=== PATIENT | female | born 1955 | race African-American/Black ===

== ENCOUNTER 2021-02-04 13:32 | Outpatient (CLI) | payer OTHER, SELFPAY | END 2021-02-04 13:33 | disposition home or self-care (01) | LOC: ANHAUDIO 13:36 | PROVIDERS: PCP Nurse Practitioner Family; Visit Provider Nurse Practitioner Family | DX: Z01.10 Encounter for examination of ears and hearing without abnormal findings (principal) | CPT/HCPCS: 92557; 92567 ==

== ENCOUNTER 2021-04-28 11:00 | Outpatient (RCR) | payer OTHER, SELFPAY | END 2021-04-28 23:59 | disposition home or self-care (01) | LOC: ANHAUDIO 11:00 | PROVIDERS: PCP Nurse Practitioner Family; Visit Provider Nurse Practitioner Family | DX: Z46.1 Encounter for fitting and adjustment of hearing aid (principal) | CPT/HCPCS: 99199; V5160; V5261; V5264 ==

== ENCOUNTER 2021-07-02 09:09 | Inpatient (IN) | payer OTHER, SELFPAY ==
[2021-07-02] VITALS (25 sets, daily range): BP systolic 118–152; BP diastolic 57–78; PULSE 77–92; RESP 16–23; TEMP 36.6–37.1; O2SAT 91–100
--- NOTE | ~2021-07-02 | CT_ITS ---
EXAMINATION: CT brain wo con DATE: 07/02/2021 10:05 INDICATION: Left-sided head injury. TECHNIQUE: Computed tomography (CT) of the head was performed without intravenous contrast. The mA wa s adjusted according to patient size. Iterative reconstruction technique was employed. The dose-lengt h product was 605.33 mGy-cm. 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 There are scattered areas of low attenuati on in the cerebral white matter. There is no intracranial hemorrhage, acute infarction, or abnormal i ntracranial mass lesion. The ventricles are normal in size. Cavum septum pellucidum and vergae are no lucas. The orbits are normal. There is complete opacification of sphenoid sinus with thickening and scl erosis of the sinus de leon, consistent with chronic sinusitis. There is mild mucosal thickening in oth er paranasal sinuses. The mastoid air cells are normal. IMPRESSION: 1. Small old infarct in left cerebellum. 2. Mild nonspecific cerebral white matter disease, which likely represents chronic small vessel ische uzair disease. 3. Chronic sinusitis. Reviewed, dictated and finalized at location A. IMPRESSION: 1. Small old infarct in left cerebellum. 2. 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 3. Chronic sinusitis.
--- NOTE | ~2021-07-02 | CT_ITS ---
EXAMINATION: CT cervical spine wo [facility] EXAM DATE: 07/02/2021 10:05 INDICATION: Fall, left hip injury. TECHNIQUE: Spiral CT of the cervical spine was performed without contrast. Axial images were reviewe d. Coronal and sagittal reformatted images cervical spine were also reviewed. The dose-length produc t (DLP) for this examination was 515.85 mGy-cm. The exposure was tailored according to patient size (auto mA exposure control), and iterative reconstruction (ASIR) was used as additional dose reduction technique. There is no prior study for comparison. FINDINGS: There is moderate reversal of the normal cervical lordosis which may be positional or spasm . There is no evidence of acute cervical fracture. The odontoid process is intact. Pre-dens space i s normal. Prevertebral soft tissue is normal. There are no soft tissue abnormalities identified. T here is no disc space widening or traumatic vertebral body subluxation suspected. There are moderate-sized lower cervical endplate osteophytes anteriorly. There is mild to moderate di ffuse cervical disc disease. There is severe left facet arthropathy at C3-4, moderate at the 2 contig uous levels. Less facet arthropathy at other levels. There is severe left neural foraminal stenosis a t C3-4, much less stenosis at other levels. There is opacified sphenoid sinus with wall thickening in dicating this is chronic. A detailed level by level evaluation of spondylosis can be added as addend um if requested. IMPRESSION: 1. No acute cervical fracture. 2. Reversal cervical lordosis. 3. Cervical spondylosis with severe left C3-4 neural foraminal stenosis. Reviewed, dictated and finalized at location B.
--- NOTE | ~2021-07-02 | XR_ITS ---
XR surgery orthopedic 07/03/2021 15:07 Indication: Intraoperative fixation of left hip fracture Procedure: 3 fluoroscopic views left hip. 132 seconds of fluoroscopy. Comparison: 07/02/2021 Findings: Interval placement of 3 lag screws transfixing the left femoral neck. Subcapital fracture n ot well visualized. The left femur is in anatomic alignment. Impression: 1: Anatomic alignment of left femoral neck status post internal fixation with 3 lag screws. Reviewed, dictated and finalized at location A. Impression: 1: Anatomic alignment of left femoral neck status post internal fixation with 3 lag screws.
--- NOTE | ~2021-07-02 | XR_ITS ---
EXAMINATION: XR chest 1V INDICATION: Hypertension, history of diabetes TECHNIQUE: AP view of the chest is obtained. COMPARISON: None available FINDINGS: The lungs are free of acute opacities. There is no pleural effusion or pneumothorax. The ca rdiomediastinal silhouette is normal. There is moderate osteoarthritis of the shoulders. Healed right -sided rib fractures are noted. IMPRESSION: 1. No acute cardiopulmonary abnormality. Reviewed, dictated and finalized at location A.
--- NOTE | ~2021-07-02 | XR_ITS ---
EXAMINATION: XR hip LT min 2V DATE: 07/02/2021 10:20 INDICATION: Left hip pain. Fall. TECHNIQUE: 2 views of left hip were obtained. COMPARISON: None. FINDINGS: There is a subcapital fracture deformity of left femoral neck with mild impaction. There is mild left hip osteoarthritis. IMPRESSION: 1. Age-indeterminate subcapital fracture deformity of left femoral neck. 2. Mild left hip osteoarthritis. Reviewed, dictated and finalized at location A.
[2021-07-02 09:29] LABS: Basophils Percent Auto 0.2 % (0.2-1.2); Hematocrit 29.9 % (37.0-47.0); Hemoglobin 9.7 g/dL (12.0-15.0); Immature Granulocyte Absolute 0.02 K/mm3 (0.00-0.031); Immature Granulocyte Percent A 0.2 % (0-0.5); Lymphocytes Absolute Auto 0.84 K/mm3 (0.9-3.2); Lymphocytes Percent Auto 7.3 % (18.3-44.2); Mean Corpuscular HGB Conc 32.4 g/dl (32-36); Mean Corpuscular Hemoglobin 29.4 pg (26-34); Mean Corpuscular Volume 90.6 fl (80-100); Mean Platelet Volume 8.8 fl (7.4-10.4); Monocytes Absolute Auto 0.3 K/mm3 (0.1-0.6); Monocytes Percent Auto 2.2 % (2.6-8.5); Neutrophils Absolute Auto 10.4 K/mm3 (1.3-6.7); Neutrophils Percent Auto 90.1 % (45.5-73.1); Platelet Count Result 295 k/mm3 (150-375); White Blood Count 11.6 K/mm3 (4.5-10.0)
[2021-07-02 09:42] LABS: Anion Gap 10 mmol/L (8-16); Blood Urea Nitrogen 27 mg/dL (7-17); Calcium 9.4 mg/dL (8.4-10.2); Carbon Dioxide 26 mmol/L (22-30); Chloride 101 mmol/L (98-107); Estimated Glomerular Filt Rate 50; Glucose 294 mg/dL (65-110); Potassium 4.4 mmol/L (3.4-5.0); Sodium 137 mmol/L (137-145)
[2021-07-02] MEDS: ONDANSETRON INJ 4 MG/2 ML VIAL IV PUSH (10:43)
[2021-07-02] MEDS: MORPHINE SULFATE (*CRX) 2 MG/ML INJ 1 MG IV PUSH (10:43)
[2021-07-02 11:22] LABS: Add Urine Microscopic? YES; Appearance Urine Clear (Clear); Bilirubin Urine Negative (Negative); Blood Urine Negative (Negative); Color Urine Straw (Yellow); Glucose Urine UA 1+ mg/dL (Negative); Ketones Urine Negative (Negative); Leukocyte Esterase Ur Negative LEU/UL (Negative); Nitrate Urine Negative (Negative); Protein Urine 2+ mg/dL (Negative); RBC Urine 0-2 /hpf (0-2); Specific Grav Ur 1.012 (1.001-1.035); Squamous Epithelial Cell Urine Rare /hpf (Few); Urobilinogen Urine Negative mg/dL (<2.0); WBC Urine 0-3 /hpf
[2021-07-02] MEDS: MORPHINE SULFATE (*CRX) 2 MG/ML INJ IV PUSH (11:35)
[2021-07-02] MEDS: SODIUM CHLORIDE 0.9% IV 1,000 ML 999 ML IV CONT (11:35)
--- NOTE | 2021-07-02 12:07 | ED.FALL ---
HPI - Fall General Chief Complaint: Fall Stated Complaint: FALL HIP Time Seen by Provider: 07/02/21 09:37 Source: patient and EMS Mode of arrival: EMS Limitations: no limitations History of Present Illness HPI Narrative: Patient is a 66-year-old female with intellectual delay, hypertension, diabetes type 2 presenting with chief complaint of left hip pain after falling out of her bed while residing in [facility] this morning around 4 AM. Patient states that she was able to get herself up and sit on the side of her bed but she noted pain to the area. Patient reports that she hit her head but denies consciousness, change in vision or hearing or any drainage or bleeding from her orifices. Patient reports pain when she tries to ambulate or put weight on her left leg. She denies any abdominal pain, back or neck pain or any other symptoms. Patient states that she was given a Tylenol and that helped with her head soreness but she still has some left hip soreness that is mild. EMS reports that when they picked the patient that her blood sugar was 430 and she administered her insulin prior to coming to the ER. Related Data Allergies Allergy/AdvReac Type Severity Reaction Status Date / Time No Known Allergies Allergy Verified 07/02/21 10:40 Review of Systems Review of Systems: CONSTITUTIONAL: Denies fever, chills, or sweats. EYES: Denies visual changes, redness, or discharge. ENT: Denies rhinorrhea, congestion, sore throat, or otalgia. CARDIOVASCULAR: Denies chest pain, palpitations, or edema. RESPIRATORY: Denies cough or dyspnea. GASTROINTESTINAL: Denies abdominal pain, nausea, vomiting, or diarrhea. GENITOURINARY: Denies dysuria or hematuria. SKIN: Denies rash or itching. MUSCULOSKELETAL: Reports left hip pain denies back pain, joint pain, or myalgia. NEUROLOGIC: Denies headache, numbness, dizziness, or weakness. PSYCHIATRIC: Denies anxiety or depression. [facility], LAT[facility] Past Medical History Medical History (Updated 07/02/21 @ 12:13 by Jo Aguilar PA-C) Diabetes type 2, uncontrolled Glaucoma Intellectual delay Exam Narrative: GENERAL: Well-appearing, well-nourished, and in no acute distress. HEAD: Normocephalic, atraumatic. No hematomas or signs of fracture. EYES: PERRLA and EOMI. ENT: Nares clear, no rhinorrhea or epistaxis. Mucous membranes moist. Oropharynx without tonsillar hypertrophy exudate or other lesions. Bilateral TMs pearly goetz nonbulging NECK: Supple. No adenopathy or masses. Range of motion intact without tenderness. CHEST: Clear to auscultation. No respiratory distress. No wheezes rales or rhonchi HEART: Regular rate and rhythm. No murmur heard. Normal peripheral pulses. ABDOMEN: Soft, nontender, nondistended, normal active bowel sounds. EXTREMITIES: Pain elicited with palpation of left hip in the groin region.patient refuses to move the left leg due to pain. No edema. SKIN: Warm, dry, no rash. NEURO: No focal deficits. Alert and oriented x3. PSYCH: Normal mood and affect. Course Vital Signs Vital signs: Vital Signs Temperature 98.8 F 07/02/21 09:12 Pulse Rate 91 07/02/21 09:12 Respiratory Rate 20 07/02/21 09:12 Blood Pressure 136/67 07/02/21 09:12 Pulse Oximetry 97 07/02/21 09:12 Temperature 98.8 F 07/02/21 09:12 Pulse Rate 82 07/02/21 12:04 Respiratory Rate 16 07/02/21 12:04 Blood Pressure 138/68 07/02/21 12:04 Pulse Oximetry 100 07/02/21 11:45 MDM - Fall MDM Narrative Medical decision making narrative: It is noted that patient has a subcapital fracture. Patient denies prior fracture and due to that being the area of her pain I suspect it is actually an acute fracture. Consult with Dr. Ruvalcaba who agrees to consult on patient a point admission to the hospitalist. Consult Dr. Turner with patient for admission. Patient creatinine and BUN are elevated at 1.3 and 27. Her urine shows protein and glucose but not ketones. Patient's blood sugar has
--- NOTE | 2021-07-02 12:51 | ADMGEN ---
This patient, Angie Merino, was admitted to Virtual Bed 3rd Floor-2. Patient/family oriented to hospital policies and general routines including ID bracelet, bed and alarms, visiting hours, pain management, procedures, bathroom and other care routines, personal items, smoking policy, room service/diet, and visiting hours. Information on how to activate the Rapid Response Team has been discussed. Admission process reviewed with pt while in ED. Pt has some difficulty answering questions at time, due to intellectual delay.
--- NOTE | 2021-07-02 13:00 | PM.IMHP ---
H&P: HPI History of Present Illness Date/Time: 07/02/21 13:00 Chief Complaint: Left hip pain after fall. Narrative: This is a very pleasant 66-year-old female with insulin-dependent diabetes and hypertension who presented to the emergency department earlier today via EMS from [facility] for evaluation of left hip pain after a fall. The patient tells me that she was sitting at the side of the bed drinking some juice when she accidentally slid out of the bed and fell hard onto her buttock with immediate pain in her left hip. She was able to pull herself back up into bed but she has continued to have pain and due to inability to bear weight today she was brought in for evaluation. X-ray of the left hip showed a subcapital fracture deformity of the left femoral neck and she is being admitted in this setting. She denies head trauma and loss of consciousness in the fall. She sustained no other injuries. At this time her pain is well controlled with no paresthesias, skin color, or temperature changes distal to the fracture. Review of Systems Review of Systems: Twelve systems were reviewed. No fever, chills, or sweats. No lightheadedness or dizziness. No syncope or near syncope. She denies chest pain or shortness of breath. No history of coronary artery disease. No cough. No sick contacts. She has some nausea early on after the fall but no vomiting. No diarrhea or dysuria. Except as documented, all other systems were reviewed and are negative. [facility] Past Medical History Medical History (Updated 07/02/21 @ 19:40 by Maite Soto PA-C) Glaucoma Hypertension Insulin dependent type 2 diabetes mellitus Intellectual delay Surgical History Surgical History (Updated 07/02/21 @ 19:36 by Maite Soto PA-C) No history of previous surgery Family History Family History (Updated 07/02/21 @ 19:37 by Maite Soto PA-C) Other Diabetes mellitus Hypertension Social History Social History (Updated 07/02/21 @ 19:45 by Maite Soto PA-C) Social History: Surrogate decision maker: Cathy Rae social services counselor. Code status: Full code. Smoking status: Never smoker Alcohol intake: never Substance use: never Substance use type: does not use Additional living arrangements comments: Resident of [facility]. Additional occupation/education comments: Disabled. Meds Home Medications and Allergies Home Medications Medication Instructions Recorded Confirmed Type amlodipine 5 mg PO DAILY 07/02/21 07/02/21 History atorvastatin 80 mg PO DAILY 07/02/21 07/02/21 History chlorthalidone 25 mg PO DAILY 07/02/21 07/02/21 History ergocalciferol (vitamin D2) 1,250 mcg WEEKLY 07/02/21 07/02/21 History ferrous sulfate 325 mg PO TID 07/02/21 07/02/21 History fluoxetine 40 mg PO DAILY 07/02/21 07/02/21 History gabapentin 300 mg PO QPM 07/02/21 07/02/21 History glipizide 15 mg PO BID 07/02/21 07/02/21 History insulin glargine [Lantus U-100 10 unit SUBCUT HS 07/02/21 07/02/21 History Insulin] insulin lispro 2 unit SUBCUT TIDWM 07/02/21 07/02/21 History latanoprost 1 drp EACH EYE QPM 07/02/21 07/02/21 History lisinopril 40 mg PO DAILY 07/02/21 07/02/21 History omeprazole 20 mg PO DAILY 07/02/21 07/02/21 History Allergies Allergy/AdvReac Type Severity Reaction Status Date / Time No Known Allergies Allergy Verified 07/02/21 13:06 Vital Signs Vital Signs - 24 hr 07/02/21 09:12 07/02/21 09:24 07/02/21 09:30 Temperature 98.8 F Pulse Rate 91 82 77 Respiratory Rate 20 19 16 Blood Pressure 136/67 132/69 Pulse Oximetry 97 95 96 07/02/21 09:31 07/02/21 09:45 07/02/21 10:19 Temperature Pulse Rate 81 78 85 Respiratory Rate 19 17 19 Blood Pressure Pulse Oximetry 96 100 98 07/02/21 10:30 07/02/21 10:31 07/02/21 11:08 Temperature Pulse Rate 88 92 82 Respiratory Rate 22 H 16 23 H Blood Pressure 152/78 H Pulse Oximetry 100 100 96 07/02/21 1
--- NOTE | 2021-07-02 15:05 | ADMGEN ---
This patient, Angie Merino, was admitted to Virtual Bed 3rd Floor-2. Patient/family oriented to hospital policies and general routines including ID bracelet, bed and alarms, visiting hours, pain management, procedures, bathroom and other care routines, personal items, smoking policy, room service/diet, and visiting hours. Information on how to activate the Rapid Response Team has been discussed. Patient/Family are encouraged to report perceived risks to care and to ask questions if they do not understand what they are told or what they should do.
[2021-07-02] MEDS: MORPHINE SULFATE (*CRX) 4 MG/ML INJ 3 MG IV PUSH ×2 (15:40→23:17)
[2021-07-02 16:51] LABS: Glucose Point of Care 207 mg/dl (65-105)
--- NOTE | 2021-07-02 17:54 | PM.CNOR ---
Assessment and Plan Assessment and plan (1) Subcapital fracture of left hip: Qualifiers: Encounter type: initial encounter Fracture type: closed Qualified Code(s): S72.012A - Unspecified intracapsular fracture of left femur, initial encounter for closed fracture Code(s): S72.012A - Unspecified intracapsular fracture of left femur, initial encounter for closed fracture Status: Acute Assessment and Plan: Non displaced fracture has a high risk of displacement. Recommend percutaneous screw fixation. We discussed the risks, benefits, and alternatives to surgery. Proceed with Percutaneous pinning of left hip tomorrow. Synthes 7.3 cannulated screws. Plan 4 weeks partial weight bearing with a walker, then weight bearing as tolerated. History of Present Illness HPI Consult date: 07/02/21 Chief complaint: Left Subcapital Femur Fracture Narrative: Patient complains of acute hip pain. Fell from her bed. Admitted through the emergency room for definitive management. No previous hip pain. Comfortable at rest. No numbness, tingling, or other associated symptoms. Lives at a care center. Shows fair insight. Review of Systems Review of Systems: Denies loss of consciousness. All systems reviewed & are unremarkable except as noted in HPI and below PMFSH Past Medical History Medical History Diabetes type 2, uncontrolled Glaucoma Intellectual delay Social History Social History Smoking status: Never smoker Alcohol intake: never Substance use: never Substance use type: does not use Spiritual care concerns: No Meds Home Medications and Allergies Home Medications Medication Instructions Recorded Confirmed Type amlodipine 5 mg PO DAILY 07/02/21 07/02/21 History atorvastatin 80 mg PO DAILY 07/02/21 07/02/21 History chlorthalidone 25 mg PO DAILY 07/02/21 07/02/21 History ergocalciferol (vitamin D2) 1,250 mcg WEEKLY 07/02/21 07/02/21 History ferrous sulfate 325 mg PO TID 07/02/21 07/02/21 History fluoxetine 40 mg PO DAILY 07/02/21 07/02/21 History gabapentin 300 mg PO QPM 07/02/21 07/02/21 History glipizide 15 mg PO BID 07/02/21 07/02/21 History insulin glargine [Lantus U-100 10 unit SUBCUT HS 07/02/21 07/02/21 History Insulin] insulin lispro 2 unit SUBCUT TIDWM 07/02/21 07/02/21 History latanoprost 1 drp EACH EYE QPM 07/02/21 07/02/21 History lisinopril 40 mg PO DAILY 07/02/21 07/02/21 History omeprazole 20 mg PO DAILY 07/02/21 07/02/21 History Allergies Allergy/AdvReac Type Severity Reaction Status Date / Time No Known Allergies Allergy Verified 07/02/21 13:06 Vital Signs Vital Signs - 24 hr 07/02/21 09:12 07/02/21 09:24 07/02/21 09:30 Temperature 37.1 C Pulse Rate 91 82 77 Respiratory Rate 20 19 16 Blood Pressure 136/67 132/69 Pulse Oximetry 97 95 96 07/02/21 09:31 07/02/21 09:45 07/02/21 10:19 Temperature Pulse Rate 81 78 85 Respiratory Rate 19 17 19 Blood Pressure Pulse Oximetry 96 100 98 07/02/21 10:30 07/02/21 10:31 07/02/21 11:08 Temperature Pulse Rate 88 92 82 Respiratory Rate 22 H 16 23 H Blood Pressure 152/78 H Pulse Oximetry 100 100 96 07/02/21 11:13 07/02/21 11:19 07/02/21 11:30 Temperature 37.1 C Pulse Rate 85 90 Respiratory Rate 20 21 H Blood Pressure Pulse Oximetry 96 98 07/02/21 11:45 07/02/21 12:04 07/02/21 12:05 Temperature 37.1 C Pulse Rate 83 82 Respiratory Rate 18 16 Blood Pressure 138/68 Pulse Oximetry 100 07/02/21 12:15 07/02/21 12:30 07/02/21 12:45 Temperature Pulse Rate 80 82 89 Respiratory Rate 17 16 20 Blood Pressure 135/71 Pulse Oximetry 91 07/02/21 12:46 07/02/21 13:38 07/02/21 13:45 Temperature Pulse Rate 85 83 83 Respiratory Rate 19 19 22 H Blood Pressure Pulse Oximetry 95 96 95 07/02/21 14:00 07/02/21 14:07 Temperatu
[2021-07-02 21:27] LABS: Glucose Point of Care 157 mg/dl (65-105)
[2021-07-02 23:14] LABS: Hemoglobin A1C 7.5 % (<5.7)
[2021-07-02 23:17] LABS: Alanine Aminotransferase 16 U/L (4-35); Albumin Level 3.5 g/dL (3.5-5.1); Alkaline Phosphatase 99 U/L (38-126); Aspartate Amino Transferase 21 U/L (14-36); Bilirubin,Total 0.3 mg/dL (0.2-1.3); Magnesium 1.8 mg/dL (1.6-2.3)
[2021-07-02 23:35] LABS: Iron 39 ug/dL (37-170); Percent Iron Saturation 18 % (20-50)
[2021-07-03] VITALS (17 sets, daily range): BP systolic 105–148; BP diastolic 49–72; PULSE 68–109; RESP 12–20; TEMP 36.1–36.8; O2SAT 90–100
[2021-07-03 00:23] LABS: Folic Acid 8.8 ng/mL (2.76->20)
[2021-07-03] MEDS: MORPHINE SULFATE (*CRX) 4 MG/ML INJ 3 MG IV PUSH ×3 (03:23→20:59)
[2021-07-03 06:33] LABS: Hematocrit 27.3 % (37.0-47.0); Hemoglobin 8.8 g/dL (12.0-15.0); Mean Corpuscular HGB Conc 32.2 g/dl (32-36); Mean Corpuscular Hemoglobin 29.6 pg (26-34); Mean Corpuscular Volume 91.9 fl (80-100); Platelet Count Result 278 k/mm3 (150-375); Red Blood Count 2.97 M/mm3 (4.2-5.4); White Blood Count 9.6 K/mm3 (4.5-10.0)
[2021-07-03 06:52] LABS: Anion Gap 10 mmol/L (8-16); Blood Urea Nitrogen 23 mg/dL (7-17); Carbon Dioxide 24 mmol/L (22-30); Chloride 102 mmol/L (98-107); Estimated CRCL calculation 45 ml/min; Estimated Glomerular Filt Rate 55; Glucose 144 mg/dL (65-110); Potassium 4.2 mmol/L (3.4-5.0); Sodium 136 mmol/L (137-145)
--- NOTE | 2021-07-03 07:28 | ECG_ITS ---
Measurements Intervals [place] Rate: 77 P: 54 [place]: 148 QRS: -6 QRSD: 84 T: 31 QT: 365 QTc: 414 Interpretive Statements SINUS RHYTHM LOW QRS VOLTAGE IN PRECORDIAL LEADS BASELINE WANDER- I, II, AVR, AVL, V1-V3 BORDERLINE ECG Electronically Signed On 07-03-2021 8:17:20 CDT by Daniel Gilmore D.O.
[2021-07-03] MEDS: CHLORTHALIDONE 25 MG TABLET PO (08:13)
[2021-07-03] MEDS: amLODIPine BESYLATE 5 MG TABLET PO (08:13)
[2021-07-03] MEDS: lisinopriL 20 MG TABLET 40 MG PO (08:13)
[2021-07-03] MEDS: FLUoxetine HCL 20 MG CAPSULE 40 MG PO (08:14)
[2021-07-03] MEDS: DIPHENHYDRAMINE 1%/ZINC 0.1% CREAM 30 GM TUBE 1 APPLIC TOPICAL ×2 (09:45→18:20)
--- NOTE | 2021-07-03 12:13 | PM.IMPN ---
Progress Note: A&P Assessment and Plan (1) Subcapital fracture of left hip: Qualifiers: Encounter type: initial encounter Fracture type: closed Qualified Code(s): S72.012A - Unspecified intracapsular fracture of left femur, initial encounter for closed fracture Code(s): S72.012A - Unspecified intracapsular fracture of left femur, initial encounter for closed fracture Status: Acute Assessment and Plan: Patient reports sliding out of bed early this morning with immediate hip pain, found to have a left hip fracture. She was placed NPO to have surgery today by Dr. Ruvalcaba. She sustained no other injuries in the fall. Pain meds, Discharge planning, DVT prophylaxis per Ortho surgery (2) Fall from bed: Code(s): W06.XXXA - Fall from bed, initial encounter Status: Acute Assessment and Plan: Slip and fall. (3) Insulin dependent type 2 diabetes mellitus: Code(s): E11.9 - Type 2 diabetes mellitus without complications; Z79.4 - MCC (current) use of insulin Status: Acute Assessment and Plan: Basal insulin will be held this evening and will be resumed after surgery and eating well Will initiate sliding scale insulin in the interim. Hemoglobin A1c is 7.5% (4) Hypertension: Code(s): I10 - Essential (primary) hypertension Status: Acute Assessment and Plan: Her blood pressures were reviewed and they have been stable. (5) Normocytic anemia: Code(s): D64.9 - Anemia, unspecified Status: Acute Assessment and Plan: The patient also has a normocytic anemia Low Vitamin B12 levels will start IM Cyanocobalamin x3, then PO 1000 mcg daily (6) Renal insufficiency: Code(s): N28.9 - Disorder of kidney and ureter, unspecified Status: Acute Assessment and Plan: Her baseline renal function is unknown as she has never been seen at this facility before. Records have been requested for review. Repeat CBC and BMP in a.m. Additional Plan Time Spent With Patient Time with patient: 25 - 35 minutes Subjective Date/time seen: 07/03/21 12:13 Interval history: Date of service 07/03/2021: Patient states she is still having intermittent pain to her left hip. She denies any numbness, tingling to her lower extremity. She does report history of constipation but states she had a last bowel movement on Tuesday. She denies any chest pain, shortness of breath, cough, fever, chills, nausea, vomiting, abdominal pain, diarrhea, dysuria, frequent urination, foul odor to her urine, lightheadedness, dizziness, syncope, or any other symptoms at this time. Review of Systems Review of Systems: All systems reviewed & are unremarkable except as noted in HPI and below Exam Narrative: General: 66-year-old woman sitting up in bed watching TV. Appears comfortable. In no acute distress. Skin: No jaundice or cyanosis. Good skin turgor. Neck: Full range of motion. Supple. Respiratory: Lungs are clear to auscultation bilaterally. No bony chest wall tenderness. Cardiovascular: The heart has a regular rate and rhythm without murmur. Lower extremities: Left lower extremity is in good equal position as the left. TTP to left lateral hip. No lower extremity edema. Distal pulses are easily palpated. No calf tenderness to palpation. Gastrointestinal: The abdomen is soft, nontender and nondistended with active bowel sounds. Psychiatric: Lucid and oriented. Memory intact. Neurologic: No focal deficits. Speech is clear. No facial drooping. Objective Data Vital Signs Vital Signs: Vital Signs - 24 hr 07/02/21 12:15 07/02/21 12:30 07/02/21 12:45 Temperature Pulse Rate 80 82 89 Respiratory Rate 17 16 20 Blood Pressure 135/71 Pulse Oximetry 91 07/02/21 12:46 07/02/21 13:38 07/02/21 13:45 Temperature Pulse Rate 85 83 83 Respiratory Rate 19 19 22 H Blood Pressure Pulse Oximetry 95 96 95 1
[2021-07-03 12:33] LABS: Glucose Point of Care 127 mg/dl (65-105)
--- NOTE | 2021-07-03 12:47 | PC.NURSE ---
To OR per bed @ 1245. Surgical SBAR sent with chart.
--- NOTE | 2021-07-03 13:04 | WPDANESEPPF ---
Anes - Initial Pre Proc Eval Procedure: Operation Date: 07/03/21 15:30 Proposed Procedures p Left Hip Pinning - Manpreet Ruvalcaba MD Date/Time: 07/03/21 13:04 Surgeon: Nanette Brennan PA-C Pre Op Diagnosis: Left Subcapital Femur Fracture Patient Data Age: 66 Gender: F Height: 1.68 m Weight: 76.8 kg Last Vital Signs Temp 36.8 C 07/03/21 06:00 Pulse 70 07/03/21 06:00 Resp 16 07/03/21 06:00 BP 141/68 H 07/03/21 06:00 Pulse Ox 93 07/03/21 10:47 Allergies Allergy/AdvReac Type Severity Reaction Status Date / Time No Known Allergies Allergy Verified 07/02/21 13:06 Home Medications Medication Instructions Recorded Confirmed Type amlodipine 5 mg PO DAILY 07/02/21 07/02/21 History atorvastatin 80 mg PO DAILY 07/02/21 07/02/21 History chlorthalidone 25 mg PO DAILY 07/02/21 07/02/21 History ergocalciferol (vitamin D2) 1,250 mcg WEEKLY 07/02/21 07/02/21 History ferrous sulfate 325 mg PO TID 07/02/21 07/02/21 History fluoxetine 40 mg PO DAILY 07/02/21 07/02/21 History gabapentin 300 mg PO QPM 07/02/21 07/02/21 History glipizide 15 mg PO BID 07/02/21 07/02/21 History insulin glargine [Lantus U-100 10 unit SUBCUT HS 07/02/21 07/02/21 History Insulin] insulin lispro 2 unit SUBCUT TIDWM 07/02/21 07/02/21 History latanoprost 1 drp EACH EYE QPM 07/02/21 07/02/21 History lisinopril 40 mg PO DAILY 07/02/21 07/02/21 History omeprazole 20 mg PO DAILY 07/02/21 07/02/21 History Laboratory Tests 07/02/21 07/02/21 07/02/21 16:37 19:55 19:55 WBC RBC Hgb Hct MCV MCH MCHC RDW Plt Count MPV Sodium Potassium Chloride Carbon Dioxide Anion Gap BUN Creatinine Estim Creat Clear Calc Estimated GFR Glucose POC Capillary Glucose 207 mg/dl H mg/dl (65-105) Hemoglobin A1c Calcium Magnesium 1.8 mg/dL mg/dL (1.6-2.3) Iron TIBC % Saturation Ferritin 246.00 ng/mL ng/mL (11.1-264) Total Bilirubin 0.3 mg/dL mg/dL (0.2-1.3) Direct Bilirubin 0.0 mg/dL mg/dL (0-0.3) AST 21 U/L U/L (14-36) ALT 16 U/L U/L (4-35) Alkaline Phosphatase 99 U/L U/L (38-126) Total Protein 7.0 g/dL g/dL (6.3-8.2) Albumin 3.5 g/dL g/dL (3.5-5.1) Vitamin B12 224.0 pg/mL L pg/mL (239-931) Folate 8.8 ng/mL ng/mL (2.76->20) TSH (Reflex) 07/02/21 07/02/21 07/02/21 19:55 19:55 20:52 WBC RBC Hgb Hct MCV MCH MCHC RDW Plt Count MPV Sodium Potassium Chloride Carbon Dioxide Anion Gap BUN Creatinine Estim Creat Clear Calc Estimated GFR Glucose POC Capillary Glucose 157 mg/dl H mg/dl (65-105) Hemoglobin A1c 7.5 % H % (<5.7) Calcium Magnesium Iron 39 ug/dL ug/dL (37-170) TIBC 216 ug/dL L ug/dL (261-462) % Saturation 18 % L % (20-50) Ferritin Total Bilirubin Direct Bilirubin AST ALT Alkaline Phosphatase Total Protein Albumin Vitamin B12 Folate TSH (Reflex) 1.150 uIU/mL uIU/mL (0.465-4.68) 07/03/21 07/03/21 07/03/21 05:33 05:33 11:17 WBC 9.6 K/mm3 K/mm3 (4.5-10.0) RBC 2.97 M/mm3 L M/mm3 (4.2-5.4) Hgb 8.8 g/dL L g/dL (12.0-15.0) Hct 27.3 % L % (37.0-47.0) MCV 91.9 fl fl
[2021-07-03] MEDS: LACTATED RINGERS 1,000 ML 30 ML IV CONT ×2 (13:08→15:45)
[2021-07-03] MEDS: ceFAZolin 2 GM/D5W 50 ML 2 GM/50 ML BAG IVPB (13:56)
[2021-07-03] MEDS: LIDO 1%/EPINEPHRINE 1:100,000 50 ML VIAL INFILTRATE (14:35)
[2021-07-03 15:18] LABS: Glucose Point of Care 169 mg/dl (65-105)
[2021-07-03] MEDS: fentaNYL CITRATE INJ (*CRX) 100 MCG/2 ML VIAL 25 MCG IV PUSH ×3 (15:46→17:26)
--- NOTE | 2021-07-03 16:20 | P.OP_ITS ---
Procedure Note - Detailed Date of Procedure 07/03/21 Pre-op Diagnosis Left Subcapital Femur Fracture, non-displaced. Post-op Diagnosis same Procedure Performed Percutaneous pinning left hip femoral neck fracture with 3 cannulated screws. Surgeon Manpreet Ruvalcaba MD Anesthesia general Indications Severe left hip pain after a fall. Subtle fracture noted radiographically. Findings Nondisplaced femoral neck fracture. Description of Procedure Preoperative antibiotics were given. The patient was brought to the operating room. In general anesthetic was administered. The patient was carefully placed on the fracture table. By planar fluoroscopy was used to confirm maintenance of reduction and treatment of reduction as necessary. The hip was prepped and draped in usual sterile fashion with a sterile curtain. 30 mL 1% lidocaine with epinephrine injected. A stab incision was created at the inferior trochanter. The guide pin was placed into the center of the femoral neck inferiorly. Two additional guide pins were placed superiorly were inverted triangle shape. Measurements were taken and the outer cortex was drilled. Three partially- threaded cannulated screws were placed. The crease incisions were closed with interrupted 4-0 Monocryl suture followed by Steri-Strips. The sterile dressing was applied. The patient was transferred to the recovery room in stable condition and extubated. There were no complications. Implants Synthes 7.3 mm partially-threaded cannulated screws x3. 85 mm and 80 mm x 2. Estimated Blood Loss -5.0 Urine Output -625.0 Drains No Pathology none sent Complications No immediate complications Condition stable Disposition PACU
[2021-07-03 16:59] LABS: Glucose Point of Care 215 mg/dl (65-105)
[2021-07-03] MEDS: GABAPENTIN 300 MG CAPSULE PO (18:03)
[2021-07-03] MEDS: LATANOPROST 0.005% OP SOLN 2.5 ML BTL 1 DROP EACH EYE (18:04)
[2021-07-03] MEDS: FERROUS SULFATE 324 MG TABLET PO (18:06)
[2021-07-03] MEDS: DOCUSATE SODIUM 100 MG CAPSULE PO (18:06)
[2021-07-03] MEDS: CYANOCOBALAMIN INJ 1,000 MCG/ML VIAL 1000 MCG IM (19:15)
[2021-07-03] MEDS: HEPARIN SODIUM 5,000 UNITS/ML VIAL 5000 UNITS SUB-Q (20:17)
[2021-07-03] MEDS: ASPIRIN 325 MG ENTERIC TABLET PO (20:24)
[2021-07-03] MEDS: INSULIN GLARGINE (*BKC) 100 UNITS/ML 10 UNITS SUB-Q (20:32)
[2021-07-03 22:49] LABS: Glucose Point of Care 298 mg/dl (65-105)
[2021-07-04] VITALS (7 sets, daily range): BP systolic 132–150; BP diastolic 66–93; PULSE 72–92; RESP 16–18; TEMP 36.2–36.7; O2SAT 93–98
[2021-07-04 06:38] LABS: Basophils Percent Auto 0.1 % (0.2-1.2); Hematocrit 26.4 % (37.0-47.0); Hemoglobin 8.7 g/dL (12.0-15.0); Immature Granulocyte Absolute 0.04 K/mm3 (0.00-0.031); Immature Granulocyte Percent A 0.4 % (0-0.5); Lymphocytes Absolute Auto 1.42 K/mm3 (0.9-3.2); Lymphocytes Percent Auto 12.5 % (18.3-44.2); Mean Corpuscular Hemoglobin 29.7 pg (26-34); Mean Corpuscular Volume 90.1 fl (80-100); Mean Platelet Volume 9.1 fl (7.4-10.4); Monocytes Absolute Auto 0.6 K/mm3 (0.1-0.6); Monocytes Percent Auto 5.4 % (2.6-8.5); Neutrophils Absolute Auto 9.3 K/mm3 (1.3-6.7); Neutrophils Percent Auto 81.6 % (45.5-73.1); Platelet Count Result 278 k/mm3 (150-375); Red Blood Count 2.93 M/mm3 (4.2-5.4); Red Cell Distribution Width 12.7 % (11.5-14.5); White Blood Count 11.4 K/mm3 (4.5-10.0)
[2021-07-04 07:06] LABS: Anion Gap 9 mmol/L (8-16); Blood Urea Nitrogen 26 mg/dL (7-17); Calcium 9.4 mg/dL (8.4-10.2); Carbon Dioxide 27 mmol/L (22-30); Chloride 101 mmol/L (98-107); Estimated CRCL calculation 39 ml/min; Estimated Glomerular Filt Rate 46; Glucose 209 mg/dL (65-110); Potassium 4.2 mmol/L (3.4-5.0); Sodium 137 mmol/L (137-145)
[2021-07-04 07:47] LABS: Glucose Point of Care 164 mg/dl (65-105)
[2021-07-04] MEDS: ASPIRIN 325 MG ENTERIC TABLET PO ×2 (08:10→21:44)
[2021-07-04] MEDS: PANTOPRAZOLE 40 MG TABLET PO (08:10)
[2021-07-04] MEDS: DOCUSATE SODIUM 100 MG CAPSULE PO ×2 (08:10→17:46)
[2021-07-04] MEDS: lisinopriL 20 MG TABLET 40 MG PO (08:10)
[2021-07-04] MEDS: ATORVASTATIN 40 MG TABLET 80 MG PO (08:10)
[2021-07-04] MEDS: DIPHENHYDRAMINE 1%/ZINC 0.1% CREAM 30 GM TUBE 1 APPLIC TOPICAL (08:10)
[2021-07-04] MEDS: CHLORTHALIDONE 25 MG TABLET PO (08:10)
[2021-07-04] MEDS: amLODIPine BESYLATE 5 MG TABLET PO (08:10)
[2021-07-04] MEDS: FERROUS SULFATE 324 MG TABLET PO ×2 (08:10→17:47)
[2021-07-04] MEDS: HEPARIN SODIUM 5,000 UNITS/ML VIAL 5000 UNITS SUB-Q ×2 (08:11→21:44)
[2021-07-04] MEDS: FLUoxetine HCL 20 MG CAPSULE 40 MG PO (08:11)
[2021-07-04] MEDS: CYANOCOBALAMIN INJ 1,000 MCG/ML VIAL 1000 MCG IM (08:14)
--- NOTE | 2021-07-04 09:41 | PM.IMPN ---
Progress Note: A&P Assessment and Plan (1) Subcapital fracture of left hip: Qualifiers: Encounter type: initial encounter Fracture type: closed Qualified Code(s): S72.012A - Unspecified intracapsular fracture of left femur, initial encounter for closed fracture Code(s): S72.012A - Unspecified intracapsular fracture of left femur, initial encounter for closed fracture Status: Acute Assessment and Plan: Patient reports sliding out of bed early with immediate hip pain, found to have a left hip fracture. She had surgery on 07/03/21 with Percutaneous pinning left hip femoral neck fracture with [address] Ruvalcaba Continue PT/OT with Partial Weight bearing per ortho Pain meds, Discharge planning, DVT prophylaxis per Ortho surgery Plan is to discharge back to [facility] where she lives but they will not accept her back over the weekend so she will be here until Tuesday. (2) Fall from bed: Code(s): W06.XXXA - Fall from bed, initial encounter Status: Acute (3) Insulin dependent type 2 diabetes mellitus: Code(s): E11.9 - Type 2 diabetes mellitus without complications; Z79.4 - termite exterminator helper (current) use of insulin Status: Acute Assessment and Plan: Continue insulin. Will initiate sliding scale insulin in the interim. Hemoglobin A1c is 7.5% (4) Hypertension: Code(s): I10 - Essential (primary) hypertension Status: Acute Assessment and Plan: Her blood pressures were reviewed and they have been stable. (5) Normocytic anemia: Code(s): D64.9 - Anemia, unspecified Status: Acute Assessment and Plan: The patient also has a normocytic anemia, stable H&H 8.7/26.4%. Low Vitamin B12 levels will start IM Cyanocobalamin x3, then PO 1000 mcg daily She also has low Iron levels with %saturation 18. Will start Ferrous Sulfate BID and have her follow up with PCP Recheck H&H in AM . (6) Renal insufficiency: Code(s): N28.9 - Disorder of kidney and ureter, unspecified Status: Acute Assessment and Plan: Her baseline renal function is unknown as she has never been seen at this facility before. Has been stable Cr 1.2-1.4. Appears to be her baseline. Will need follow up with PCP after discharge Repeat CBC and BMP in a.m. Additional Plan Time Spent With Patient Time with patient: 25 - 35 minutes Subjective Date/time seen: 07/04/21 09:41 Interval history: Date of service 07/04/2021: She just got done walking with therapy and reports some hip pain, but otherwise she is feeling well. Denies any sore throat. Still having a postnasal drip with mild cough, but denies any SOB. She denies any numbness, tingling to her lower extremity. She does report history of constipation but states she had a last bowel movement on Tuesday. She denies any chest pain, fever, chills, nausea, vomiting, abdominal pain, diarrhea, dysuria, frequent urination, foul odor to her urine, lightheadedness, dizziness, syncope, or any other symptoms at this time. Review of Systems Review of Systems: All systems reviewed & are unremarkable except as noted in HPI and below Exam Narrative: General: 66-year-old woman sitting up in the chair watching TV. Appears comfortable. In no acute distress. Skin: No jaundice or cyanosis. Good skin turgor. Neck: Full range of motion. Supple. Respiratory: Lungs are clear to auscultation bilaterally. No bony chest wall tenderness. Cardiovascular: The heart has a regular rate and rhythm without murmur. Lower extremities: Compression stockings to lower extremities. No lower extremity edema. Distal pulses are easily palpated. No calf tenderness to palpation. Gastrointestinal: The abdomen is soft, nontender and nondistended with active bowel sounds. Psychiatric: Lucid and oriented. Memory intact. Neurologic: No focal deficits. Speech is clear. No facial drooping. Objec
[2021-07-04 11:32] LABS: Glucose Point of Care 161 mg/dl (65-105)
[2021-07-04] MEDS: oxyCODONE HCL (*CRX) 5 MG TAB IR PO (15:13)
[2021-07-04] MEDS: LATANOPROST 0.005% OP SOLN 2.5 ML BTL 1 DROP EACH EYE (17:46)
[2021-07-04] MEDS: GABAPENTIN 300 MG CAPSULE PO (17:47)
[2021-07-04] MEDS: INSULIN GLARGINE (*BKC) 100 UNITS/ML 10 UNITS SUB-Q (21:50)
[2021-07-04 21:56] LABS: Glucose Point of Care 174 mg/dl (65-105)
[2021-07-05 06:01] VITALS: BP 115/66; PULSE 71; RESP 16; TEMP 36.2; O2SAT 100
[2021-07-05 06:22] LABS: Hemoglobin 8.7 g/dL (12.0-15.0); Mean Corpuscular HGB Conc 32.2 g/dl (32-36); Mean Corpuscular Volume 93.1 fl (80-100); Mean Platelet Volume 9.1 fl (7.4-10.4); Platelet Count Result 260 k/mm3 (150-375); Red Cell Distribution Width 12.9 % (11.5-14.5); White Blood Count 7.5 K/mm3 (4.5-10.0)
[2021-07-05 06:32] LABS: Anion Gap 4 mmol/L (8-16); Blood Urea Nitrogen 31 mg/dL (7-17); Calcium 9.2 mg/dL (8.4-10.2); Carbon Dioxide 31 mmol/L (22-30); Chloride 101 mmol/L (98-107); Estimated CRCL calculation 36 ml/min; Estimated Glomerular Filt Rate 42; Glucose 213 mg/dL (65-110); Potassium 3.8 mmol/L (3.4-5.0); Sodium 136 mmol/L (137-145)
[2021-07-05 07:46] LABS: Glucose Point of Care 158 mg/dl (65-105)
[2021-07-05 08:30] VITALS: BP 114/70; PULSE 79; RESP 16; TEMP 36.3; O2SAT 96
[2021-07-05] MEDS: ASPIRIN 325 MG ENTERIC TABLET PO ×2 (08:32→20:01)
[2021-07-05] MEDS: CHLORTHALIDONE 25 MG TABLET PO (08:32)
[2021-07-05] MEDS: FERROUS SULFATE 324 MG TABLET PO ×2 (08:32→17:12)
[2021-07-05] MEDS: amLODIPine BESYLATE 5 MG TABLET PO (08:32)
[2021-07-05] MEDS: DOCUSATE SODIUM 100 MG CAPSULE PO ×2 (08:32→17:12)
[2021-07-05] MEDS: lisinopriL 20 MG TABLET 40 MG PO (08:33)
[2021-07-05] MEDS: ATORVASTATIN 40 MG TABLET 80 MG PO (08:33)
[2021-07-05] MEDS: HEPARIN SODIUM 5,000 UNITS/ML VIAL 5000 UNITS SUB-Q ×2 (08:33→20:01)
[2021-07-05] MEDS: FLUoxetine HCL 20 MG CAPSULE 40 MG PO (08:33)
[2021-07-05] MEDS: PANTOPRAZOLE 40 MG TABLET PO (08:33)
[2021-07-05] MEDS: CYANOCOBALAMIN INJ 1,000 MCG/ML VIAL 1000 MCG IM (08:34)
[2021-07-05 12:03] LABS: Glucose Point of Care 165 mg/dl (65-105)
--- NOTE | 2021-07-05 12:29 | PM.IMPN ---
Progress Note: A&P Assessment and Plan (1) Renal insufficiency: Code(s): N28.9 - Disorder of kidney and ureter, unspecified Status: Acute Assessment and Plan: Her baseline renal function is unknown as she has never been seen at this facility before. Cr has slightly gone up to 1.5 with BUN at 31. I will hold her Chlorothaladone and Lisinopril for tomorrow and recheck her kidney function in the morning. She is not on any other medications that could be affecting her renal function and otherwise eating and drinking without any issues. Repeat CBC and BMP in a.m. (2) Subcapital fracture of left hip: Qualifiers: Encounter type: initial encounter Fracture type: closed Qualified Code(s): S72.012A - Unspecified intracapsular fracture of left femur, initial encounter for closed fracture Code(s): S72.012A - Unspecified intracapsular fracture of left femur, initial encounter for closed fracture Status: Acute Assessment and Plan: Patient reports sliding out of bed early with immediate hip pain, found to have a left hip fracture. She had surgery on 07/03/21 with Percutaneous pinning left hip femoral neck fracture with [address] Ruvalcaba Continue PT/OT with Partial Weight bearing per ortho Pain meds, Discharge planning, DVT prophylaxis per Ortho surgery Plan is to discharge back to [facility] where she lives but they will not accept her back over the weekend so she will be here until Tuesday. (3) Fall from bed: Code(s): W06.XXXA - Fall from bed, initial encounter Status: Acute (4) Insulin dependent type 2 diabetes mellitus: Code(s): E11.9 - Type 2 diabetes mellitus without complications; Z79.4 - prison (current) use of insulin Status: Acute Assessment and Plan: Continue insulin. Will initiate sliding scale insulin in the interim. Hemoglobin A1c is 7.5% (5) Hypertension: Code(s): I10 - Essential (primary) hypertension Status: Acute Assessment and Plan: Her blood pressures were reviewed (114/70) and they have been stable. (6) Normocytic anemia: Code(s): D64.9 - Anemia, unspecified Status: Acute Assessment and Plan: The patient also has a normocytic anemia, stable H&H 8.7/26.4%. Low Vitamin B12 levels will start IM Cyanocobalamin x3, then PO 1000 mcg daily She also has low Iron levels with %saturation 18. Will start Ferrous Sulfate BID and have her follow up with PCP Recheck H&H in AM . Time Spent With Patient Time with patient: 25 - 35 minutes Subjective Date/time seen: 07/05/21 12:29 Interval history: Date of Service 07/05/21: She reports feeling cold in her room with cold air blowing through her heater. She is otherwise eating and drinking without any issues. She just has mild pain to her left hip. She has not had a bowel movement yet, but is passing gas. Denies chest pain, SOB, cough ,fever, chills, nausea, vomiting, abdominal pain, leg swelling, calf pain, or any other symptoms at this time Review of Systems Review of Systems: All systems reviewed & are unremarkable except as noted in HPI and below Exam Narrative: General: 66-year-old woman sitting up in the chair, bundled up in blanketes. Appears comfortable. In no acute distress. Skin: No jaundice or cyanosis. Good skin turgor. Neck: Full range of motion. Supple. Respiratory: Lungs are clear to auscultation bilaterally. No wheezing, rales or rhonchi. No bony chest wall tenderness. Cardiovascular: The heart has a regular rate and rhythm without murmur. Lower extremities: Compression stockings in place. No lower extremity edema. Distal pulses are easily palpated. No calf tenderness to palpation. Gastrointestinal: The abdomen is soft, nontender and nondistended with active bowel sounds. Psychiatric: Lucid and oriented. Memory intact. Neurologic: No focal deficits. Speech is clear. No facial
[2021-07-05] MEDS: LACTATED RINGERS 500 ML 100 ML IV CONT (14:05)
[2021-07-05 16:29] LABS: Glucose Point of Care 231 mg/dl (65-105)
[2021-07-05] MEDS: LATANOPROST 0.005% OP SOLN 2.5 ML BTL 1 DROP EACH EYE (17:12)
[2021-07-05] MEDS: GABAPENTIN 300 MG CAPSULE PO (17:12)
[2021-07-05] MEDS: INSULIN ASPART (*BKC) 100 UNITS/ML SUB-Q (17:13)
[2021-07-05] MEDS: INSULIN GLARGINE (*BKC) 100 UNITS/ML 10 UNITS SUB-Q (20:01)
[2021-07-05 20:15] VITALS: PULSE 79; RESP 16; O2SAT 96
[2021-07-06 00:31] LABS: Glucose Point of Care 176 mg/dl (65-105)
[2021-07-06] MEDS: oxyCODONE HCL (*CRX) 5 MG TAB IR PO (01:35)
[2021-07-06 06:08] LABS: Anion Gap 8 mmol/L (8-16); Blood Urea Nitrogen 28 mg/dL (7-17); Calcium 9.2 mg/dL (8.4-10.2); Carbon Dioxide 29 mmol/L (22-30); Chloride 101 mmol/L (98-107); Estimated CRCL calculation 36 ml/min; Estimated Glomerular Filt Rate 42; Glucose 191 mg/dL (65-110); Potassium 4.1 mmol/L (3.4-5.0); Sodium 138 mmol/L (137-145)
[2021-07-06 08:27] LABS: Glucose Point of Care 131 mg/dl (65-105)
[2021-07-06] MEDS: HEPARIN SODIUM 5,000 UNITS/ML VIAL 5000 UNITS SUB-Q (08:30)
[2021-07-06] MEDS: amLODIPine BESYLATE 5 MG TABLET PO (08:31)
[2021-07-06] MEDS: FERROUS SULFATE 324 MG TABLET PO (08:31)
[2021-07-06] MEDS: FLUoxetine HCL 20 MG CAPSULE 40 MG PO (08:31)
[2021-07-06] MEDS: ASPIRIN 325 MG ENTERIC TABLET PO (08:31)
[2021-07-06] MEDS: ATORVASTATIN 40 MG TABLET 80 MG PO (08:31)
[2021-07-06] MEDS: CYANOCOBALAMIN 1,000 MCG TABLET 1000 MCG PO (08:31)
[2021-07-06] MEDS: DOCUSATE SODIUM 100 MG CAPSULE PO (08:31)
[2021-07-06] MEDS: PANTOPRAZOLE 40 MG TABLET PO (08:31)
[2021-07-06 11:56] LABS: Glucose Point of Care 173 mg/dl (65-105)
--- NOTE | 2021-07-06 12:07 | PM.DS ---
DS: Admitting Diagnosis Discharge Date 07/06/21 Admitting Diagnosis Fall, hip pain DS: Discharge Diagnosis Discharge Diagnosis (1) Renal insufficiency: Code(s): N28.9 - Disorder of kidney and ureter, unspecified Status: Acute Assessment and Plan: This is a 66-year-old female with a history of insulin-dependent diabetes and hypertension, who presented to the emergency department via EMS from [facility] for evaluation of left hip pain after a fall from bed. She was brought to emergency room due to increased left hip pain and unable to bear weight. Initial vitals showed stable blood pressure 136/67, normal heart rate, afebrile, normal oxygenation on room air. Initial labs showed leukocytosis at 11,600, elevated neutrophils, most likely secondary to pain, normocytic anemia with a hemoglobin of 9.7, hematocrit 29%. Elevated creatinine 1.3, BUN 27. Elevated glucose 294. Hemoglobin A1c 7.5. Present saturation low at 18 showing iron deficiency anemia. Low vitamin B12 levels at 224 showing item B12 deficiency. Normal TSH. Normal LFTs. Urinalysis showing no signs of acute infection. Chest x-ray showed no acute cardiopulmonary findings. 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 No acute cervical fracture. Cervical spondylosis with severe left C3-C4 neural foramen stenosis. Left hip showed age-indeterminate subcapital fracture deformity on left femoral neck. The patient was admitted into the hospital for further workup and evaluation with a consult to Orthopedic surgery for hip fracture. She was placed NPO, IV pain medications, bedrest with a consult to Dr. Ruvalcaba. She had surgery on 07/03/21 with Percutaneous pinning left hip femoral neck fracture with 3 cannulated screws. She has been doing well with PT and OT with partial weight-bearing. Her insurance is not except SNF placement so she will be going back to her detention. Dr. Ruvalcaba recommended heparin subcu injections for 30 days. Will do Tylenol for pain control. He would like follow-up in 2 weeks. Follow-up with primary care doctor in 1 week. Patient understands and agrees the plan all questions answered. Return to ER warnings given. I talked to the patient's living for is her normal creatinine is between 1.5-1.2. She is within normal range at this time. Will continue her home medications and recheck a BMP in 1 week. We also checked a bladder scan which did not show she was retaining. Otherwise he denies any urinary complaints. She is stable for discharge at this time. The patient also has a normocytic anemia, stable H&H 8.7/26.4%. Low Vitamin B12 levels will start IM Cyanocobalamin x3, then PO 1000 mcg daily She also has low Iron levels with %saturation 18. Will continue her Ferrous Sulfate TID and have her follow up with PCP (2) Subcapital fracture of left hip: Qualifiers: Encounter type: initial encounter Fracture type: closed Qualified Code(s): S72.012A - Unspecified intracapsular fracture of left femur, initial encounter for closed fracture Code(s): S72.012A - Unspecified intracapsular fracture of left femur, initial encounter for closed fracture Status: Acute (3) Fall from bed: Code(s): W06.XXXA - Fall from bed, initial encounter Status: Acute (4) Insulin dependent type 2 diabetes mellitus: Code(s): E11.9 - Type 2 diabetes mellitus without complications; Z79.4 - snf (current) use of insulin Status: Acute (5) Hypertension: Code(s): I10 - Essential (primary) hypertension Status: Acute (6) Normocytic anemia: Code(s): D64.9 - Anemia, unspecified Status: Acute DS: Summary Hospital Course Hospital Course: See above Status at Discharge Cognitive/behavioral status at discharge: Stable, improved. Time Spent with Patient Time attestation: Total time spent providing and/or co
[2021-07-06 12:57] LABS: EDCOVIDSCREEN Negative (Negative)
--- NOTE | 2021-07-06 13:41 | PC.NURSE ---
went to admin suppository to compel pt to have a BM. Pt stated that she does not feel constipated right now. Pt also stated that she will take it if I am going to make her but she doesn't feel constipated as of right now.
== END 2021-07-06 14:46 | DRG 308 ==
LOC: ANHED 12:13 → ANH3MEDSUR 12:25
PROVIDERS: Orthopaedic Surgery; Physician Assistant; Admitting Provider Family Medicine; Emergency Provider Emergency Medicine; PCP Nurse Practitioner Family; Visit Provider Physician Assistant
PROC: 0QH734Z Insertion of Internal Fixation Device into Left Upper Femur, Percutaneous Approach (ICD-10-PCS; principal; 2021-07-03 15:30)
DX: S72.012A Unspecified intracapsular fracture of left femur, initial encounter for closed fracture (principal); W06.XXXA Fall from bed, initial encounter; I10 Essential (primary) hypertension; E11.9 Type 2 diabetes mellitus without complications; H40.9 Unspecified glaucoma; D64.9 Anemia, unspecified; N28.9 Disorder of kidney and ureter, unspecified; Z79.4 Long term (current) use of insulin
CPT/HCPCS: 36415; 51702; 70450; 71045; 72125; 73502; 80048; 80076; 81001; 82607; 82728; 82746; 82948; 83036; 83540; 83550; 83735; 84443; 85025; 85027; 87426; 93005; 96361; 96374; 96375; 96376; 97110; 97116; 97161; 97165; 97530; 97535; 99285; A9270; C1713; C1769; C9803; G0378; J0690; J1100; J1644; J1815; J2250; J2270; J2370; J2405; J2704; J3010; J3420; J7030; J7120

== ENCOUNTER 2022-02-08 14:59 | Outpatient (RCR) | payer MEDICAID, SELFPAY | END 2022-02-08 23:59 | disposition home or self-care (01) | LOC: ANHAUDIO 14:59 | DX: Z46.1 Encounter for fitting and adjustment of hearing aid (principal) | CPT/HCPCS: 99199 ==

== ENCOUNTER 2023-07-19 21:54 | Inpatient (IN) | payer OTHER, SELFPAY ==
--- NOTE | ~2023-07-19 | CT_ITS ---
EXAMINATION: CT cervical spine wo con DATE: 07/19/2023 23:39 INDICATION: injury TECHNIQUE: Computed tomography (CT) of the cervical spine was performed without intravenous contrast. Automated exposure control and iterative reconstruction technique were employed. The dose-length pro duct was 471.47 mGy-cm. COMPARISON: None. FINDINGS: Vertebral Body Alignment: Intact. Craniocervical and atlantoaxial alignment: Mild degenerative change. Alignment intact. Osseous structures/fracture: No evidence of a lytic or blastic process in the visualized spine. No e vidence of acute fracture. Cervical soft tissues: The paraspinal soft tissues planes are maintained. Degenerative changes: Degenerative changes, without severe neural foraminal or central canal narrowin g. IMPRESSION: No acute fracture or traumatic malalignment in the cervical spine. Reviewed, dictated and finalized at location K. BASE MARKETING ANALYST
--- NOTE | ~2023-07-19 | CT_ITS ---
EXAMINATION: CT chest abdomen pelvis w con DATE: 07/19/2023 23:41 INDICATION: trauma . TECHNIQUE: Computed tomography (CT) of the chest, abdomen, and pelvis was performed with 100 mL Omnip aque-350 intravenous contrast. Automated exposure control and iterative reconstruction technique were employed. The dose-length product was 1421.47 mGy-cm. COMPARISON: None FINDINGS: CHEST: No thoracic aortic injury. Mild arch calcification. No mediastinal hematoma. Traction diverticulum in the upper thoracic esophagus. No pericardial effusion. Mild coronary artery calcifications. No acute lung injury. No pleural effusion or pneumothorax. ABDOMEN/PELVIS: No solid organ injury. Right liver lobe simple cyst/hemangioma. Bilateral renal cortical thinning and scarring. No evidence of bowel or mesenteric injury. No free fluid or free air. No retroperitoneal hematoma. Pelvic contents are atraumatic. MUSCULOSKELETAL: No acute extraspinal fracture. Uncomplicated fixation screws in the left femoral neck. No fracture or traumatic malalignment of the thoracic or lumbar spine. IMPRESSION: No acute process detected in the chest, abdomen, or pelvis. Reviewed, dictated and finalized at location K. IC DANCER
--- NOTE | ~2023-07-19 | MR_ITS ---
EXAMINATION: MR brain/brain stem wo/w con DATE: 07/21/2023 14:02 INDICATION: Episode of unresponsiveness. TECHNIQUE: Magnetic resonance imaging (MRI) of the brain and brainstem was performed without and with 15 mL MultiHance intravenous contrast. COMPARISON: Head CT 07/19/2023 FINDINGS: There is no intracranial hemorrhage, acute infarction, or abnormal intracranial mass lesion . There are scattered areas of nonspecific increased T2-weighted signal intensity in the cerebral whi te matter. The ventricles are normal in size. There is cavum septum pellucidum and vergae. The orbits are normal. There is mild mucosal thickening in the ethmoid sinuses. The mastoid air cells are cass l. IMPRESSION: 1. Mild nonspecific cerebral white matter disease, which likely represents chronic small vessel ische uzair disease. Reviewed, dictated and finalized at location A. ULAR KNIFE MACHINE CUTTER IMPRESSION: 1. Mild nonspecific cerebral white matter disease, which likely represents patient care secretary irving small vessel ischemic disease.
--- NOTE | ~2023-07-19 | CT_ITS ---
EXAMINATION: CT brain wo con DATE: 07/19/2023 23:33 INDICATION: altered mental status . TECHNIQUE: Computed tomography (CT) of the head was performed without intravenous contrast. The mA wa s adjusted according to patient size. Iterative reconstruction technique was employed. The dose-lengt h product was 605.33 mGy-cm. COMPARISON: None. FINDINGS: No acute intracranial hemorrhage or extra-axial fluid collection. No hydrocephalus, mass, or herniation. No acute ischemic infarct. Unremarkable dural venous sinus attenuation. No acute osseous abnormality. The aerated spaces are clear. IMPRESSION: No acute intracranial process. Reviewed, dictated and finalized at location [facility]. [facility]
--- NOTE | 2023-07-19 22:08 | ECG_ITS ---
Measurements Intervals [place] Rate: 51 P: 48 MN: 193 QRS: 2 QRSD: 120 T: 31 QT: 436 QTc: 404 Interpretive Statements SINUS BRADYCARDIA INCOMPLETE RIGHT BUNDLE BRANCH BLOCK BASELINE ARTIFACT- AVR, AVL, AVF BORDERLINE ECG COMPARED TO ECG 07/03/2021 07:46:14 SINUS BRADYCARDIA NOW PRESENT INCOMPLETE RIGHT BUNDLE BRANCH BLOCK NOW PRESENT Electronically Signed On 07-20-2023 6:06:18 OUTBOUND SALES ADVISOR by Daniel Gilmore D.O.
[2023-07-19 22:10] VITALS: BP 101/60; PULSE 55; RESP 13; TEMP 36.4; O2SAT 98
[2023-07-19 22:26] LABS: Glucose Point of Care 161 mg/dl (65-105)
[2023-07-19 22:31] LABS: Basophils Absolute Auto 0.1 K/mm3 (0.0-0.1); Basophils Percent Auto 0.7 % (0.2-1.2); Eosinophils Absolute Auto 0.2 K/mm3 (0-0.3); Hematocrit 29.7 % (37.0-47.0); Immature Granulocyte Absolute 0.02 K/mm3 (0.00-0.031); Immature Granulocyte Percent A 0.3 % (0-0.5); Lymphocytes Absolute Auto 2.35 K/mm3 (0.9-3.2); Lymphocytes Percent Auto 31.2 % (18.3-44.2); Mean Corpuscular HGB Conc 30.3 g/dl (32-36); Mean Corpuscular Hemoglobin 30.4 pg (26-34); Mean Corpuscular Volume 100.3 fl (80-100); Mean Platelet Volume 8.9 fl (7.4-10.4); Monocytes Absolute Auto 0.4 K/mm3 (0.1-0.6); Monocytes Percent Auto 5.6 % (2.6-8.5); Neutrophils Absolute Auto 4.5 K/mm3 (1.3-6.7); Neutrophils Percent Auto 60.2 % (45.5-73.1); Platelet Count Result 288 k/mm3 (150-375); Red Blood Count 2.96 M/mm3 (4.2-5.4); Red Cell Distribution Width 12.8 % (11.5-14.5); White Blood Count 7.5 K/mm3 (4.5-10.0)
--- NOTE | 2023-07-19 22:32 | ED.GENADULT ---
HPI - General Adult General Chief complaint: Unspecified Stated complaint: ams Time Seen by Provider: 07/19/23 22:05 History of Present Illness HPI narrative: Patient brought in by EMS from nursing facility. She has a history of developmental delay. She was found lying on the ground of her room. Likely linger for at least couple hours. Patient is unresponsive. Also has a large amount of black stool in her pants. At baseline she is ambulatory and alert. Related Data Home Medications Medication Instructions Recorded Confirmed amlodipine 5 mg tablet 5 mg PO DAILY 07/02/21 07/02/21 atorvastatin 80 mg tablet 80 mg PO DAILY 07/02/21 07/02/21 chlorthalidone 25 mg tablet 25 mg PO DAILY 07/02/21 07/02/21 ergocalciferol (vitamin D2) 1,250 1,250 mcg WEEKLY 07/02/21 07/02/21 mcg (50,000 unit) capsule ferrous sulfate 325 mg (65 mg 325 mg PO TID 07/02/21 07/02/21 iron) tablet fluoxetine 40 mg capsule 40 mg PO DAILY 07/02/21 07/02/21 gabapentin 300 mg capsule 300 mg PO QPM 07/02/21 07/02/21 glipizide 10 mg tablet 15 mg PO BID 07/02/21 07/02/21 insulin glargine 100 unit/mL 10 unit subcut HS 07/02/21 07/02/21 subcutaneous solution (Lantus U-100 Insulin) insulin lispro 100 unit/mL 2 unit subcut TIDWM 07/02/21 07/02/21 subcutaneous solution latanoprost 0.005 % eye drops 1 drp EACH EYE QPM 07/02/21 07/02/21 lisinopril 40 mg tablet 40 mg PO DAILY 07/02/21 07/02/21 omeprazole 20 mg capsule,delayed 20 mg PO DAILY 07/02/21 07/02/21 release Allergies Allergy/AdvReac Type Severity Reaction Status Date / Time No Known Allergies Allergy Verified 07/02/21 13:06 Review of Systems Review of Systems: Unable to obtain review of systems due to patient's unresponsiveness PMFSH Past Medical History Medical History Glaucoma Hypertension Insulin dependent type 2 diabetes mellitus Intellectual delay Surgical History Surgical History No history of previous surgery Family History Family History Other Diabetes mellitus Hypertension Social History Social History Social History: Surrogate decision maker: Cathy Rae social group worker. Code status: Full code. Smoking status: Never smoker Alcohol intake: never Substance use: never Substance use type: does not use Additional living arrangements comments: Resident of [facility]. Additional occupation/education comments: Disabled. Exam Narrative: GENERAL: Well-nourished, eyes closed, unresponsive HEAD: Normocephalic, atraumatic. EYES: PERRLA and eyes states center when head is turned ENT: Nares clear, no rhinorrhea or epistaxis. Mucous membranes moist. NECK: Supple. CHEST: Clear to auscultation. No respiratory distress. HEART: Regular rate and rhythm. ABDOMEN: Soft, nondistended. EXTREMITIES: No spontaneous motion. No edema. SKIN: Warm, dry, no rash. NEURO: Unresponsive, no seizure activity or increased tone PSYCH: Unresponsive. Course Course Emergency Course: Due to high probability of clinically significant lift threatening deterioration, the patient required my highest level of preparedness to intervene emergently. Critical care time documented not including procedures needed Telemetry ordered due to unresponsive to evaluate for dysrhythmias. Evaluated by myself. Rhythm bradycardic Rate 51 Differential includes but not limited to stroke, head trauma, electrolyte abnormality, anemia, overdose Vital Signs Vital signs: Vital Signs Temperature 36.4 C 07/19/23 22:10 Pulse Rate 55 L 07/19/23 22:10 Respiratory Rate 13 07/19/23 22:10 Blood Pressure 101/60 07/19/23 22:10 Pulse Oximetry 98 07/19/23 22:10 Temperature 36.4 C 07/19/23 22:10 Pulse Rate 52 L 07/20/23 01:00 R
[2023-07-19 22:37] LABS: Appearance Urine Clear (Clear); Bacteria Urine None Seen /hpf; Bilirubin Urine Negative (Negative); Blood Urine Negative (Negative); Color Urine Yellow (Yellow); Glucose Urine UA Negative (Negative); Ketones Urine Negative (Negative); Leukocyte Esterase Ur Negative LEU/UL (Negative); Nitrate Urine Negative (Negative); Non Pathogenic Casts 0-2; Protein Urine 1+ mg/dL (Negative); RBC Urine 0-2 /hpf (0-2); Specific Grav Ur 1.011 (1.001-1.035); Squamous Epithelial Cell Urine None seen /hpf (Few); Urobilinogen Urine 0.2 mg/dL (<2.0); WBC Urine 0-5 /hpf
[2023-07-19 22:41] LABS: Add Urine Microscopic? YES
[2023-07-19 22:44] LABS: Partial Thromboplastin Time 27.5 SECONDS (22.3-36.8); Prothrombin Time 13.3 Seconds (11.1-14.7)
[2023-07-19 22:45] LABS: Ethanol < 10 mg/dL (<10)
[2023-07-19 23:00] VITALS: BP 83/53; PULSE 54; RESP 13; O2SAT 98
[2023-07-19 23:08] LABS: Alanine Aminotransferase 20 U/L (6-35); Albumin Level 3.7 g/dL (3.5-5.1); Alkaline Phosphatase 72 U/L (38-126); Anion Gap 9 mmol/L (8-16); Aspartate Amino Transferase 23 U/L (14-36); Bilirubin,Total 0.2 mg/dL (0.2-1.3); Blood Urea Nitrogen 29 mg/dL (7-17); Calcium 9.1 mg/dL (8.4-10.2); Carbon Dioxide 26 mmol/L (22-30); Chloride 105 mmol/L (98-107); Estimated Glomerular Filt Rate 39; Glucose 170 mg/dL (65-110); Potassium 4.1 mmol/L (3.4-5.0); Sodium 140 mmol/L (137-145)
[2023-07-20] VITALS (28 sets, daily range): BP systolic 80–125; BP diastolic 48–69; PULSE 50–89; RESP 10–24; TEMP 34.5–37; O2SAT 97–100; BMI 28.9
[2023-07-20] LABS: Amphetamine Screen Urine Negative (Negative); Barbiturate Screen Urine Negative (Negative); Benzodiazepines Screen Urine Negative (Negative); Cannabinoid Screen Urine Negative (Negative); Cocaine Screen Urine Negative (Negative); Methadone Screen Urine Negative (Negative); Opiate Screen Urine Negative (Negative); Phencyclidine Screen Urine Negative (Negative)
[2023-07-20 01:03] LABS: Alveolar/Arterial O2 Gradient 17.8 mmHg; Base Excess ABG -2.6 mEq/l (+/-2.0); Fractional Inspired Oxygen 21 %; HCO3 ABG 24.5 mEq/l (22.0-26.0); Oxygen Content ABG 13.5 %vol (16.0-22.0); Oxygen Saturation ABG 91.3 % (95.0-100.0); Oxyhemoglobin 91.3 % THb (90.0-100.0); PCO2 ABG 52.9 mmHg (35.0-45.0); PO2 ABG 68.6 mmHg (80.0-100.0); PO2 FiO2 Ratio Arterial Blood 3.27 %; Total Hemoglobin 10.5 g/dL (12.0-18.0)
[2023-07-20 01:05] LABS: Device ROOM AIR; Modified Allen's Test Pass; Site Drawn RIGHT RADIAL; pH ABG 7.283 (7.350-7.450)
[2023-07-20 02:17] LABS: Influenza A QL RT-PCR Negative (Negative); Influenza B QL RT-PCR Negative (Negative); RSV RNA, RT-PCR Negative (Negative); SARS-CoV-2 RNA PCR Negative (Negative)
[2023-07-20 02:57] LABS: Lactic Acid Reflex 1.3 mmol/L (0.7-2.0)
--- NOTE | 2023-07-20 03:40 | PM.IMHP ---
H&P: HPI History of Present Illness Date/Time: 07/20/23 03:40 Chief Complaint: Altered mental status Narrative: 68-year-old female with a past medical history of essential hypertension, hyperlipidemia, glaucoma, diabetes and intellectual disability who presented to the ER via EMS from half-way due to being found on the ground unresponsive. Patient is reportedly usually ambulatory and able to speak. The patient arrived unresponsive. The patient will grimace to painful stimuli. She otherwise is flaccid. She does not follow commands. There is no evidence of external trauma. CT of the head cervical spine chest abdomen pelvis were all unremarkable. Patient is unable to provide any history. All information was obtained from ER records and prior medical records. Review of Systems Review of Systems: ROS unobtainable: Yes unobtainable due to mental status PMFSH Past Medical History Medical History (Updated 07/20/23 @ 04:07 by Amaya Paz DO) B12 deficiency CKD (chronic kidney disease) stage 3, GFR 30-59 ml/min GERD (gastroesophageal reflux disease) Glaucoma Hypertension Insulin dependent type 2 diabetes mellitus Intellectual delay Surgical History Surgical History (Updated 07/20/23 @ 03:59 by Amaya Paz DO) Status post closed fracture of left femur (06/2021) Intramedullary screw Family History Family History Other Diabetes mellitus Hypertension Social History Social History Social History: Surrogate decision maker: Cathy Rae dialysis social worker. Code status: Full code. Smoking status: Never smoker Alcohol intake: never Substance use: never Substance use type: does not use Additional living arrangements comments: Resident of [facility]. Additional occupation/education comments: Disabled. Meds Home Medications and Allergies Home Medications Medication Instructions Recorded Confirmed Type amlodipine 5 mg tablet 5 mg PO DAILY 07/02/21 07/20/23 History atorvastatin 80 mg tablet 80 mg PO DAILY 07/02/21 07/20/23 History chlorthalidone 25 mg tablet 25 mg PO DAILY 07/02/21 07/20/23 History ergocalciferol (vitamin D2) 1,250 1,250 mcg WEEKLY 07/02/21 07/20/23 History mcg (50,000 unit) capsule ferrous sulfate 325 mg (65 mg 325 mg PO TID 07/02/21 07/20/23 History iron) tablet fluoxetine 40 mg capsule 40 mg PO DAILY 07/02/21 07/20/23 History gabapentin 300 mg capsule 300 mg PO QPM 07/02/21 07/20/23 History glipizide 10 mg tablet 15 mg PO BID 07/02/21 07/02/21 History insulin glargine 100 unit/mL 10 unit subcut HS 07/02/21 07/20/23 History subcutaneous solution (Lantus U-100 Insulin) insulin lispro 100 unit/mL 2 unit subcut TIDWM 07/02/21 07/20/23 History subcutaneous solution latanoprost 0.005 % eye drops 1 drp EACH EYE QPM 07/02/21 07/02/21 History lisinopril 40 mg tablet 40 mg PO DAILY 07/02/21 07/20/23 History omeprazole 20 mg capsule,delayed 20 mg PO DAILY 07/02/21 07/02/21 History release acetaminophen 325 mg tablet 650 mg PO Q4H PRN hip pain #30 tabs 07/06/21 07/20/23 Rx (Tylenol) cyanocobalamin (vitamin B-12) 1,000 mcg PO QAM #30 tabs 07/06/21 Rx 1,000 mcg tablet (Vitamin B-12) heparin (porcine) 5,000 unit/mL 5,000 units subcut Q12HR 30 days 07/06/21 Rx injection solution #60 mL baclofen 5 mg tablet 5 mg PO TID 07/20/23 07/20/23 History docusate sodium 100 mg capsule 100 mg PO BID 07/20/23 07/20/23 History Allergies Allergy/AdvReac Type Severity Reaction Status Date / Time No Known Allergies Allergy Verified 07/02/21 13:06 Vital Signs Vital Signs - 24 hr 07/19/23 22:10 07/19/23 22:10 07/19/23 23:00 Temperature 97.6 F Pulse Rate 55 L 55 L 54 L Respiratory Rate 13 13 Blood Pressure 101/60 83/53 L Pulse Oximetry 98 98 07/20/23 00:00 07/20/23 01:00 07/20/23 03:00 Temperature Pulse Rat
--- NOTE | 2023-07-20 05:50 | ADMGEN ---
This patient, Rodríguez Merino, was admitted to IMU Room 203-01. Patient/family oriented to hospital policies and general routines including ID bracelet, bed and alarms, visiting hours, pain management, procedures, bathroom and other care routines, personal items, smoking policy, room service/diet, and visiting hours. Information on how to activate the Rapid Response Team has been discussed. Patient/Family are encouraged to report perceived risks to care and to ask questions if they do not understand what they are told or what they should do.
[2023-07-20 06:33] LABS: Glucose Point of Care 186 mg/dl (65-105)
[2023-07-20 07:46] LABS: IFOB Positive Control Positive; Immunochemical Fecal Occult Bl Negative (N)
[2023-07-20 07:50] LABS: Hematocrit 27.2 % (37.0-47.0); Hemoglobin 8.1 g/dL (12.0-15.0); Mean Corpuscular HGB Conc 29.8 g/dl (32-36); Mean Corpuscular Hemoglobin 30.8 pg (26-34); Mean Corpuscular Volume 103.4 fl (80-100); Platelet Count Result 317 k/mm3 (150-375); Red Blood Count 2.63 M/mm3 (4.2-5.4); Red Cell Distribution Width 12.8 % (11.5-14.5); White Blood Count 7.7 K/mm3 (4.5-10.0)
[2023-07-20 08:00] LABS: Anion Gap 11 mmol/L (8-16); Blood Urea Nitrogen 31 mg/dL (7-17); Calcium 9.1 mg/dL (8.4-10.2); Carbon Dioxide 23 mmol/L (22-30); Chloride 105 mmol/L (98-107); Estimated CRCL calculation 34 ml/min; Estimated Glomerular Filt Rate 46; Glucose 212 mg/dL (65-110); Sodium 139 mmol/L (137-145)
[2023-07-20] MEDS: SODIUM CHLORIDE 0.9% IV 1,000 ML 100 ML IV CONT ×3 (08:26→23:30)
[2023-07-20 08:33] LABS: Hypochromasia 1+ (NORMAL); Ovalocytes 1+ (NORMAL); Platelet Estimate Adequate (Adequate); Schistocytes None Seen (NORMAL)
--- NOTE | 2023-07-20 08:37 | PC.NURSE ---
0800-Patient transferred to ICU 1 from 203. Report received from JAMES Malhotra. Belongings brought with patient. Call light within reach.
[2023-07-20 09:05] LABS: Folic Acid 7.3 ng/mL (2.76->20)
[2023-07-20 11:47] LABS: Alveolar/Arterial O2 Gradient 4.2 mmHg; Base Excess ABG 0.4 mEq/l (+/-2.0); Device NON-INVASIVE VENT; Fractional Inspired Oxygen 25 %; HCO3 ABG 26.2 mEq/l (22.0-26.0); Modified Allen's Test Pass; Oxygen Content ABG 13.9 %vol (16.0-22.0); Oxygen Saturation ABG 98.1 % (95.0-100.0); Oxyhemoglobin 97.1 % THb (90.0-100.0); PCO2 ABG 47.4 mmHg (35.0-45.0); PO2 ABG 117.8 mmHg (80.0-100.0); PO2 FiO2 Ratio Arterial Blood 4.71 %; Site Drawn LEFT RADIAL
[2023-07-20 11:48] LABS: Non-Invasive Expiratory Pressure 6 CMH2O; Non-Invasive Vent Rate 18 /MIN
[2023-07-20 11:50] LABS: Glucose Point of Care 154 mg/dl (65-105)
--- NOTE | 2023-07-20 12:32 | PM.CNPUL ---
Assessment and Plan Assessment and plan (1) Hypercapnic respiratory failure: Code(s): J96.92 - Respiratory failure, unspecified with hypercapnia Status: Acute Assessment and Plan: Patient presents with altered mental status, hypothermia, no leukocytosis, creatinine 1.[address] scan of the chest is essentially normal with minimal atelectasis and no evidence of consolidation, nodules, masses, or pleural disease. Patient had a room air blood gas 7.28/53/69. Patient has an acute hypercarbic respiratory failure secondary to altered mental status. The degree of hypercarbia does not account for her altered mental status. Patient was treated with BiPAP and had low tidal volumes and was placed on noninvasive ventilator with the AVAPS mode rate of 18, tidal volume 450, EPAP 6, minimal inspiratory pressure 8, maximal inspiratory pressure 25, inspiratory time 0.95, rise of 2 and room air and a blood gas was 7.36/47/118. Plan: Patient has no evidence of a primary pulmonary process causing her altered mental status. She has hypercarbic respiratory failure secondary to her altered mental status and possibly refer obesity is contributing to her CO2 retention. Her recent blood gas is improved. I will increase her respiratory rate to 20, tidal volume to 500 and change her EPAP to 5 and a minimal inspiratory pressure to 6. I have told the bedside nurse if she continues to wake up they can try her off of the BiPAP and follow her respiratory status. Will follow with you. History of Present Illness History of Present Illness Consult date: 07/20/23 Chief complaint: Altered Mental Status Narrative: 07/20/2023: This is a new pulmonary consult for hypercarbic respiratory failure. 68-year-old with a history of hypertension, hyperlipidemia, diabetes and developmental delay with a baseline being able to walk, talk, day and sensing at her living facility. Patient was found lying on the floor and was brought to the emergency department. Her blood pressure was 101/60, heart rate was 55, room air saturation wears 98%. Temperature was 36.4? lungs were clear to auscultation. She was unresponsive with grimace to pain. White blood cell count was 7.5, creatinine was 1.60, eosinophils were 2%. Tox screen was negative. Room air blood gas was 7.28/53/69. COVID, influenza, RSV RT PCR studies negative. CT scan head, C-spine, chest, abdomen and pelvis were unremarkable. Patient was treated with a Kelsey Hugger and was placed on BiPAP. 07/20: Patient had low tidal volumes and was placed on noninvasive ventilator with the AVAPS mode rate of 18, tidal volume 450, EPAP 6, minimal inspiratory pressure 8, maximal inspiratory pressure 25, inspiratory time 0.95, rise of 2 and room air and a blood gas was 7.36/47/118. She is afebrile. Temperature now is 36.4. White blood cell count is 7.7, creatinine is 1.40. The patient opens her eyes to voice, shows me 2 fingers and wiggles her toes to command. DATA: EXAMINATION: CT chest abdomen pelvis w con DATE: 07/19/2023 23:41 INDICATION: trauma . TECHNIQUE: Computed tomography (CT) of the chest, abdomen, and pelvis was performed with 100 mL Omnipaque-350 intravenous contrast. Automated exposure control and iterative reconstruction technique were employed. The dose-length product was 1421.47 mGy-cm. COMPARISON: None FINDINGS: CHEST: No thoracic aortic injury. Mild arch calcification. No mediastinal hematoma. Traction diverticulum in the upper thoracic esophagus. No pericardial effusion. Mild coronary artery calcifications. No acute lung injury. No pleural effusion or pneumothorax. ABDOMEN/PELVIS: No solid organ injury. Right liver lobe simple cyst/hemangioma. Bilateral renal cortical thinning and scarring. No evidence of bowel or mesenteric injury. No free fluid or free air. No retroperitoneal hematoma. Pelvic contents are atraumatic. MUSCULOSKELETAL: No acu
--- NOTE | 2023-07-20 17:37 | PM.IMPN ---
Subjective Date/time seen: 07/20/23 17:37 Interval history: Pt seen and examined admitted AMS, unresponsive, bradycardia, acute respiratory failure, hypothermia pt temperature is better now pt has been on bear hugger all morning pt admitted this am see full history and physical by MD, continue on BIPAP watch for improvement, pulmonology rounding. Pt has been very weak awaiting MRI brain and neurology consult for possible stroke. PT/ OT to evaluate pt weakness completely PT/ ST/ OT to order Objective Data Vital Signs Vital Signs: Vital Signs - 24 hr 07/19/23 22:10 07/19/23 22:10 07/19/23 23:00 Temperature 36.4 C Pulse Rate 55 L 55 L 54 L Respiratory Rate 13 13 Blood Pressure 101/60 83/53 L Pulse Oximetry 98 98 Oxygen Delivery Oxygen Flow Rate Fraction of Inspired Oxygen 07/20/23 00:00 07/20/23 01:00 07/20/23 03:00 Temperature Pulse Rate 59 L 52 L 53 L Respiratory Rate 20 14 13 Blood Pressure 105/63 100/61 119/62 Pulse Oximetry 100 100 97 Oxygen Delivery Oxygen Flow Rate Fraction of Inspired Oxygen 07/20/23 04:05 07/20/23 04:00 07/20/23 05:05 Temperature Pulse Rate 53 L 54 L Respiratory Rate 20 14 18 Blood Pressure 93/61 L 94/69 L Pulse Oximetry 100 98 100 Oxygen Delivery BiPAP Oxygen Flow Rate Fraction of Inspired Oxygen 07/20/23 05:55 07/20/23 06:05 07/20/23 06:28 Temperature 35.6 C L 34.7 C L Pulse Rate 76 50 L Respiratory Rate 21 H 24 H Blood Pressure 125/64 Pulse Oximetry 98 100 Oxygen Delivery Oxygen Flow Rate Fraction of Inspired Oxygen 07/20/23 06:40 07/20/23 06:00 07/20/23 07:24 Temperature 34.5 C L Pulse Rate 55 L 59 L Respiratory Rate 21 H Blood Pressure Pulse Oximetry 100 Oxygen Delivery BiPAP Oxygen Flow Rate Fraction of Inspired Oxygen 07/20/23 07:40 07/20/23 07:52 07/20/23 08:00 Temperature 35.2 C L 35.2 C L Pulse Rate 59 L Respiratory Rate 22 H 17 Blood Pressure 101/62 Pulse Oximetry 100 Oxygen Delivery BiPAP Oxygen Flow Rate Fraction of Inspired Oxygen 07/20/23 08:00 07/20/23 08:00 07/20/23 10:00 Temperature Pulse Rate 82 72 Respiratory Rate Blood Pressure Pulse Oximetry 100 Oxygen Delivery BiPAP Oxygen Flow Rate Fraction of Inspired Oxygen 30 07/20/23 11:04 07/20/23 11:01 07/20/23 11:28 Temperature Pulse Rate 64 61 Respiratory Rate 20 18 Blood Pressure Pulse Oximetry 100 100 100 Oxygen Delivery BiPAP BiPAP BiPAP Oxygen Flow Rate Fraction of Inspired Oxygen 30 07/20/23 12:00 07/20/23 12:00 07/20/23 12:00 Temperature 36.4 C 36.4 C Pulse Rate 59 L 58 L Respiratory Rate 12 Blood Pressure 80/48 L Pulse Oximetry 98 Oxygen Delivery Oxygen Flow Rate Fraction of Inspired Oxygen 07/20/23 12:00 07/20/23 13:49 07/20/23 14:09 Temperature Pulse Rate 59 L Respiratory Rate 12 Blood Pressure Pulse Oximetry 98 100 100 Oxygen Delivery BiPAP Nasal Cannula Nasal Cannula Oxygen Flow Rate 3 1 Fraction of Inspired Oxygen 30 32 24 07/20/23 16:00 07/20/23 14:00 07/20/23 16:00 Temperature 36.4 C L 36.3 C L Pulse Rate 58 L 59 L Respiratory Rate 12 Blood Pressure 97/54 L Pulse Oximetry 99 Oxygen Delivery Oxygen Flow Rate Fraction of Inspired Oxygen 07/20/23 16:00 07/20/23 16:00 07/20/23 16:29 Temperature Pulse Rate 75 75 Respiratory Rate 17 Blood Pressure Pulse Oximetry 100 98 Oxygen Delivery Room Air Room Air Oxygen Flow Rate Fraction of Inspired Oxygen 21 Intake/Output Intake/Output: Intake & Output 07/17/23 07/18/23 07/19/23 07/20/23 23:59 23:59 23:59 23:59 Intake Total 1000 Output Total 2049 Balance -1050 Meds/Results Medications: Active Medications Generic Name Dose Route Start Last Admin Trade Name Freq PRN Reason Stop Dose Admin Dextrose 12.5 gm 07/20/23 03:58 Dextrose 50% 25 Gm/50 Ml Syringe IV PUSH
[2023-07-20 18:36] LABS: Glucose Point of Care 133 mg/dl (65-105)
[2023-07-20] MEDS: BRIMONIDINE TARTRATE 0.2% OP SOLN 5 ML BTL 1 DROP EACH EYE (23:00)
[2023-07-20] MEDS: INSULIN GLARGINE (*BKC) 100 UNITS/ML 18 UNITS SUB-Q (23:31)
[2023-07-20 23:41] LABS: Glucose Point of Care 138 mg/dl (65-105)
[2023-07-21] VITALS (7 sets, daily range): BP systolic 109–141; BP diastolic 55–73; PULSE 63–84; RESP 12–19; TEMP 36.1–37.8; O2SAT 96–99
[2023-07-21 06:12] LABS: Glucose Point of Care 135 mg/dl (65-105)
[2023-07-21] MEDS: ONDANSETRON INJ 4 MG/2 ML VIAL IV PUSH (07:59)
--- NOTE | 2023-07-21 08:40 | PM.PNPUL ---
Progress Note: A&P Assessment and Plan (1) Hypercapnic respiratory failure: Code(s): J96.92 - Respiratory failure, unspecified with hypercapnia Status: Acute Assessment and Plan: Patient presents with altered mental status, hypothermia, no leukocytosis, creatinine 1.[address] scan of the chest is essentially normal with minimal atelectasis and no evidence of consolidation, nodules, masses, or pleural disease. Patient had a room air blood gas 7.28/53/69. Patient has an acute hypercarbic respiratory failure secondary to altered mental status. The degree of hypercarbia does not account for her altered mental status. Patient was treated with BiPAP and had low tidal volumes and was placed on noninvasive ventilator with the AVAPS mode rate of 18, tidal volume 450, EPAP 6, minimal inspiratory pressure 8, maximal inspiratory pressure 25, inspiratory time 0.95, rise of 2 and room air and a blood gas was 7.36/47/118. Plan: Patient has no evidence of a primary pulmonary process causing her altered mental status. She has hypercarbic respiratory failure secondary to her altered mental status and possibly refer obesity is contributing to her CO2 retention. Her recent blood gas is improved. I will increase her respiratory rate to 20, tidal volume to 500 and change her EPAP to 5 and a minimal inspiratory pressure to 6. I have told the bedside nurse if she continues to wake up they can try her off of the BiPAP and follow her respiratory status. Patient was more awake and taken off noninvasive ventilator and placed on nasal cannula oxygen and room weaned to room air. 07/21 patient slept all night on room air and is currently on room air with saturations 100%. She is awake. She denies any shortness of breath. Denies cough, hemoptysis. She is making some clear phlegm. Denies any chest pain. Patient did have a fever this morning. Room air blood gas with a pH of 7.41/42/73 Plan: No evidence of hypercarbic respiratory failure now that patient's mental status has improved. Mild hypoxemia but does not qualify for supplemental oxygen from this blood gas. Will sign off, call with questions. Subjective Date/time seen: 07/21/23 08:40 Interval history: 07/20/2023: This is a new pulmonary consult for hypercarbic respiratory failure. 68-year-old with a history of hypertension, hyperlipidemia, diabetes and developmental delay with a baseline being able to walk, talk, day and sensing at her living facility. Patient was found lying on the floor and was brought to the emergency department.? Her blood pressure was 101/60, heart rate was 55, room air saturation wears 98%.? Temperature was 36.4? lungs were clear to auscultation.? She was unresponsive with grimace to pain.? White blood cell count was 7.5, creatinine was 1.60, eosinophils were 2%.? Tox screen was negative.? Room air blood gas was 7.28/53/69.? COVID, influenza, RSV RT PCR studies negative.? CT scan head, C-spine, chest, abdomen and pelvis were unremarkable.? Patient was treated with a Kelsey Hugger and was placed on BiPAP. 07/20:? Patient had low tidal volumes and was placed on noninvasive ventilator with the AVAPS mode rate of 18, tidal volume 450, EPAP 6, minimal inspiratory pressure 8, maximal inspiratory pressure 25, inspiratory time 0.95, rise of 2 and room air and a blood gas was 7.36/47/118.? She is afebrile.? Temperature now is 36.4.? White blood cell count is 7.7, creatinine is 1.40.? The patient opens her eyes to voice, shows me 2 fingers and wiggles her toes to command. Patient was more awake and taken off noninvasive ventilator and placed on nasal cannula oxygen and room weaned to room air. 07/21 patient slept all night on room air and is currently on room air with saturations 100%. She is awake. She denies any shortness of breath. Denies cough, hemoptysis. She is making some clear phlegm. Denies any chest pain. Patient did have a fever this morning.
[2023-07-21 09:13] LABS: Alveolar/Arterial O2 Gradient 27.4 mmHg; Fractional Inspired Oxygen 21 %; HCO3 ABG 25.8 mEq/l (22.0-26.0); Oxygen Content ABG 13.9 %vol (16.0-22.0); Oxygen Saturation ABG 94.7 % (95.0-100.0); Oxyhemoglobin 93.4 % THb (90.0-100.0); PCO2 ABG 41.6 mmHg (35.0-45.0); PO2 ABG 72.5 mmHg (80.0-100.0); PO2 FiO2 Ratio Arterial Blood 3.45 %; Total Hemoglobin 10.5 g/dL (12.0-18.0)
[2023-07-21 09:14] LABS: Modified Allen's Test Pass; Site Drawn RIGHT RADIAL
[2023-07-21] MEDS: ATORVASTATIN 40 MG TABLET 80 MG PO (09:34)
[2023-07-21] MEDS: INSULIN ASPART (*BKC) 100 UNITS/ML SUB-Q ×4 (09:34→17:39)
[2023-07-21] MEDS: ACETAMINOPHEN 325 MG TABLET 650 MG PO ×2 (09:34→17:39)
[2023-07-21] MEDS: BACLOFEN 5 MG TABLET PO ×3 (09:35→17:38)
[2023-07-21] MEDS: DOCUSATE SODIUM 100 MG CAPSULE PO ×2 (09:35→17:38)
[2023-07-21] MEDS: BRIMONIDINE TARTRATE 0.2% OP SOLN 5 ML BTL 1 DROP EACH EYE ×2 (09:35→18:12)
[2023-07-21] MEDS: FERROUS SULFATE 325 MG TABLET DR BY MOUTH ×3 (09:35→17:38)
[2023-07-21] MEDS: LORATADINE 10 MG TABLET PO (09:36)
[2023-07-21] MEDS: POTASSIUM CHLORIDE 10 MEQ ER TABLET PO (09:36)
[2023-07-21] MEDS: SODIUM CHLORIDE 0.9% IV 1,000 ML 100 ML IV CONT ×2 (09:36→23:35)
[2023-07-21] MEDS: MAGNESIUM OXIDE 400 MG TABLET PO ×2 (09:36→17:38)
[2023-07-21] MEDS: SENNOSIDES 8.6 MG TABLET PO ×2 (09:36→17:38)
--- NOTE | 2023-07-21 09:36 | PCSTNOTE ---
Please refer to the Communication Evaluation and Bedside Swallow Evaluation in the EMR. Please note, silent aspiration cannot be ruled out at bedside.
[2023-07-21] MEDS: FLUoxetine HCL 10 MG CAPSULE PO (09:41)
[2023-07-21] MEDS: CHLORTHALIDONE 25 MG TABLET PO (09:41)
--- NOTE | 2023-07-21 10:53 | PC.NURSE ---
Patient transferred to 261 per bed. Report given to JAMES Jin. All questions answered. Belongings taken with patient.
--- NOTE | 2023-07-21 11:09 | WPDNEURCNPN ---
Assessment and Plan Assessment and plan (1) Unresponsive: Code(s): R41.89 - Other symptoms and signs involving cognitive functions and awareness Status: Acute (2) Bradycardia: Code(s): R00.1 - Bradycardia, unspecified Status: Acute (3) Altered mental status: Qualifiers: Altered mental status type: coma Coma depth: Lorenzo coma 3-8 Coma timing: at hospital admission Qualified Code(s): R40.2433 - Walcott coma scale score 3-8, at hospital admission Code(s): R41.82 - Altered mental status, unspecified Status: Acute (4) Intellectual delay: Code(s): F81.9 - Developmental disorder of scholastic skills, unspecified Status: Acute (5) Hypercapnic respiratory failure: Code(s): J96.92 - Respiratory failure, unspecified with hypercapnia Status: Acute Plan Rodríguez Merino is a 68 year old female with a history of intellectual disability, diabetes, hypertension, hyperlipidemia presenting after being found down. Differential is broad at this point including infectious, metabolic, toxic etiologies. From a neurological standpoint, considering stroke vs seizure. Patient appears to be close to her baseline currently. - MRI brain with and without contrast - Routine EEG Consult date: 07/21/23 Reason for consult: Altered mental status HPI: Rodríguez Merino is a 68 year old female with a history of intellectual disability, diabetes, hypertension, hyperlipidemia presenting after being found down. Patient resides in a assisted and at baseline is verbal and ambulatory. She was found down in her room, for an unknown period of time. There were no reports for seizure like activity. She was taken to [facility] ED where CT head showed no acute changes. CT CAP was unrevealing as well. No leukocytosis noted on labs, normal lactic acid. UA and UDS were negative as well. Due to encephalopathy, she developed hypercarbic respiratory failure, requiring her to be placed on BiPAP. She has also been hypothermic down to 34.5 degrees celsius, requiring her to be placed on bear-hugger. She is not currently on any antibiotics. EKG showed mild sinus bradycardia. Blood cultures are pending. Her exam that has been reported by other providers is that she will grimace to noxious stimuli, but not much else. Patient is drowsy this morning but communicating appropriately. She does not have any recollection of the inciting event that lead to her hospitalization. Review of Systems Constitutional: Constitutional: Denies chills, Denies fever(s) and Denies weight loss Eyes: Eyes: Denies diplopia and Denies loss of vision ENT: Denies dizziness, Denies hearing loss and Denies tinnitus Cardiovascular: Cardiovascular: Denies chest pain, Denies syncope and Reports dyspnea Respiratory: Respiratory: Denies cough, Denies dyspnea and Denies wheezing Gastrointestinal: Gastrointestinal: Denies abdominal pain, Denies change in bowel habits and Denies vomiting Genitourinary: Genitourinary: Denies urinary incontinence Musculoskeletal: Musculoskeletal: Denies arthralgias and Denies joint swelling Integumentary/Breasts: Skin/Breast: Denies new lesions and Denies rash Neurologic: Reports as per HPI, Denies dizziness, Denies syncope and Denies loss of vision Psychiatric: Psychiatric: Denies anxiety and Denies depression Endocrine: Endocrine: Denies cold intolerance and Denies heat intolerance Hematologic/Lymphatic: Hematologic/Lymphatic: Denies easy bleeding and Denies easy bruising Allergic/Immunologic: Allergic/Immunologic: Denies no additional allergic/immunologic complaints and Denies wheezing PMFSH Past Medical History Medical History B12 deficiency CKD (chronic kidney disease) stage 3, GFR 30-59 ml/min GERD (gastroesophageal reflux disease) Glaucoma Hypertension Insulin dependent type 2 diabetes mellitus Intellectual delay Surgical History Surgic
--- NOTE | 2023-07-21 11:10 | PC.NURSE ---
This patient, Rodríguez Merino, was received from ICU on 07/21/23 at 1050. Patient/family oriented to unit policies and routines
[2023-07-21 11:31] LABS: Glucose Point of Care 214 mg/dl (65-105)
--- NOTE | 2023-07-21 14:09 | PM.IMPN ---
Progress Note: A&P Assessment and Plan (1) Hypercapnic respiratory failure: Code(s): J96.92 - Respiratory failure, unspecified with hypercapnia Status: Acute (2) Megaloblastic anemia: Code(s): D53.1 - Other megaloblastic anemias, not elsewhere classified Status: Acute (3) B12 deficiency: Code(s): E53.8 - Deficiency of other specified B group vitamins Status: Acute (4) CKD (chronic kidney disease) stage 3, GFR 30-59 ml/min: Qualifiers: Chronic kidney disease stage 3 subtype: stage 3b (GFR 30-44) Qualified Code(s): N18.32 - Chronic kidney disease, stage 3b Code(s): N18.30 - Chronic kidney disease, stage 3 unspecified Status: Acute (5) Altered mental status: Qualifiers: Altered mental status type: coma Coma depth: [place] coma 3-8 Coma timing: at hospital admission Qualified Code(s): R40.2433 - [place] coma scale score 3-8, at hospital admission Code(s): R41.82 - Altered mental status, unspecified Status: Acute (6) Unresponsive: Code(s): R41.89 - Other symptoms and signs involving cognitive functions and awareness Status: Acute Plan Patient comes in completely unresponsive CT of the head without contrast did not demonstrate any acute process. Will place patient on BiPAP and repeat ABG in 2 hours. Will consult Neurology for further recommendations. Will monitor neuro checks closely. Pt could not have MRI brain because we do not know her full medical history. Patient was mildly bradycardic in the ER. Pt was found to be hypothermic. Pt was hypothermic yesterday temp improved on a bear hugger. Pt needed respiratory support with BIPAP yesterday not today pt is on room air Patient has chronic kidney disease which appears stable compared to values from 2 years ago. Pt is on maintenance IV fluids Pt appears much improved back to her baseline can transfer to the medical floor Continue encourage food and PT/ OT Follow blood cultures no ABX have been started Subjective Date/time seen: 07/21/23 14:09 Interval history: Rodríguez Merino is a 68 year old female with a history of intellectual disability, diabetes, hypertension, hyperlipidemia presenting after being found down. Patient resides in a intermediate and at baseline is verbal and ambulatory. She was found down in her room, for an unknown period of time. She was taken to [place] ED where CT head showed no acute changes. CT Chest abdo and pelvis was nl. Pt was hypothermic yesterday temp improved on a bear hugger. Pt needed respiratory support with BIPAP yesterday not today pt is on RA Pt appears much improved back to her baseline can transfer to the medical floor Continue encourage food and PT/ OT Follow blood cultures as no ABX have been started Review of Systems Review of Systems: more alert and responsive holding conversation Objective Data Vital Signs Vital Signs: Vital Signs - 24 hr 07/20/23 16:00 07/20/23 16:00 07/20/23 16:00 Temperature 36.4 C L 36.3 C L Pulse Rate 58 L 75 Respiratory Rate 12 Blood Pressure 97/54 L Pulse Oximetry 99 Oxygen Delivery Fraction of Inspired Oxygen 07/20/23 16:00 07/20/23 16:29 07/20/23 18:00 Temperature 36.4 C Pulse Rate 75 Respiratory Rate 17 Blood Pressure Pulse Oximetry 100 98 Oxygen Delivery Room Air Room Air Fraction of Inspired Oxygen 21 07/20/23 18:00 07/20/23 20:00 07/21/23 00:00 Temperature Pulse Rate 60 Respiratory Rate Blood Pressure Pulse Oximetry Oxygen Delivery Room Air Room Air Fraction of Inspired Oxygen 07/20/23 20:00 07/20/23 22:00 07/21/23 00:00 Temperature Pulse Rate 89 71 74 Respiratory Rate Blood Pressure Pulse Oximetry Oxygen Delivery Fraction of Inspired Oxygen 07/21/23 02:00 07/20/23 20:00 07/21/23 00:00 Temperature 37.0 C 37.5 C Pulse Rate 71 61 72 Respiratory Rate 10 L 12
[2023-07-21 17:11] LABS: Glucose Point of Care 123 mg/dl (65-105)
[2023-07-21] MEDS: GABAPENTIN 300 MG CAPSULE PO (17:38)
[2023-07-21] MEDS: INSULIN GLARGINE (*BKC) 100 UNITS/ML 18 UNITS SUB-Q (20:36)
[2023-07-21 21:02] LABS: Glucose Point of Care 192 mg/dl (65-105)
[2023-07-22 03:31] VITALS: BP 156/80; PULSE 86; RESP 20; TEMP 36.4; O2SAT 99
[2023-07-22 08:22] LABS: Glucose Point of Care 132 mg/dl (65-105)
[2023-07-22 08:40] VITALS: BP 137/68; PULSE 73; TEMP 36.4; O2SAT 99
[2023-07-22] MEDS: INSULIN ASPART (*BKC) 100 UNITS/ML SUB-Q ×4 (08:42→17:46)
[2023-07-22] MEDS: ATORVASTATIN 40 MG TABLET 80 MG PO (08:43)
[2023-07-22] MEDS: ACETAMINOPHEN 325 MG TABLET 650 MG PO ×2 (08:43→18:14)
[2023-07-22] MEDS: CHLORTHALIDONE 25 MG TABLET PO (08:43)
[2023-07-22] MEDS: BRIMONIDINE TARTRATE 0.2% OP SOLN 5 ML BTL 1 DROP EACH EYE ×2 (08:43→18:14)
[2023-07-22] MEDS: DOCUSATE SODIUM 100 MG CAPSULE PO ×2 (08:43→18:14)
[2023-07-22] MEDS: BACLOFEN 5 MG TABLET PO ×3 (08:43→18:14)
[2023-07-22] MEDS: MAGNESIUM OXIDE 400 MG TABLET PO ×2 (08:44→18:14)
[2023-07-22] MEDS: LORATADINE 10 MG TABLET PO (08:44)
[2023-07-22] MEDS: POTASSIUM CHLORIDE 10 MEQ ER TABLET PO (08:44)
[2023-07-22] MEDS: FERROUS SULFATE 325 MG TABLET DR BY MOUTH ×3 (08:44→18:14)
[2023-07-22] MEDS: FLUoxetine HCL 10 MG CAPSULE PO (08:44)
[2023-07-22] MEDS: SENNOSIDES 8.6 MG TABLET PO ×2 (08:44→18:14)
--- NOTE | 2023-07-22 10:14 | WPDNEUROPN ---
Progress Note: A&P Assessment and Plan (1) Unresponsive: Code(s): R41.89 - Other symptoms and signs involving cognitive functions and awareness Status: Acute (2) Altered mental status: Qualifiers: Altered mental status type: coma Coma depth: [place] coma 3-8 Coma timing: at hospital admission Qualified Code(s): R40.2433 - [place] coma scale score 3-8, at hospital admission Code(s): R41.82 - Altered mental status, unspecified Status: Acute (3) Intellectual delay: Code(s): F81.9 - Developmental disorder of scholastic skills, unspecified Status: Acute (4) Hypercapnic respiratory failure: Code(s): J96.92 - Respiratory failure, unspecified with hypercapnia Status: Acute Plan Rodríguez Merino is a 68 year old female with a history of intellectual disability, diabetes, hypertension, hyperlipidemia presenting after being found down. Differential is broad at this point including infectious, metabolic, toxic etiologies. From a neurological standpoint, considered stroke vs seizure. MRI brain was unrevealing, ruling out stroke. Routine EEG normal as well. Patient appears to be close to her baseline currently. - No anti-seizure medications needed at this time. Subjective Date/time seen: 07/22/23 10:14 Interval history: Rodríguez Merino is a 68 year old female with a history of intellectual disability, diabetes, hypertension, hyperlipidemia presenting after being found down. Patient resides in a senior care and at baseline is verbal and ambulatory. She was found down in her room, for an unknown period of time. There were no reports for seizure like activity. She was taken to [facility] ED where CT head showed no acute changes. CT CAP was unrevealing as well. No leukocytosis noted on labs, normal lactic acid. UA and UDS were negative as well. Due to encephalopathy, she developed hypercarbic respiratory failure, requiring her to be placed on BiPAP. She has also been hypothermic down to 34.5 degrees celsius, requiring her to be placed on bear-hugger. She is not currently on any antibiotics. EKG showed mild sinus bradycardia. Blood cultures are pending. Her exam that has been reported by other providers is that she will grimace to noxious stimuli, but not much else. Patient does not have any recollection of the inciting event that lead to her hospitalization. MRI brain is unrevealing. Routine EEG is normal as well. Review of Systems Constitutional: Constitutional: Denies chills, Denies fever(s) and Denies weight loss Eyes: Eyes: Denies diplopia and Denies loss of vision ENT: Denies dizziness, Denies hearing loss and Denies tinnitus Cardiovascular: Cardiovascular: Denies chest pain, Denies syncope and Reports dyspnea Respiratory: Respiratory: Denies cough, Denies dyspnea and Denies wheezing Gastrointestinal: Gastrointestinal: Denies abdominal pain, Denies change in bowel habits and Denies vomiting Genitourinary: Genitourinary: Denies urinary incontinence Musculoskeletal: Musculoskeletal: Denies arthralgias and Denies joint swelling Integumentary/Breasts: Skin/Breast: Denies new lesions and Denies rash Neurologic: Reports as per HPI, Denies dizziness, Denies syncope and Denies loss of vision Psychiatric: Psychiatric: Denies anxiety and Denies depression Endocrine: Endocrine: Denies cold intolerance and Denies heat intolerance Hematologic/Lymphatic: Hematologic/Lymphatic: Denies easy bleeding and Denies easy bruising Allergic/Immunologic: Allergic/Immunologic: Denies no additional allergic/immunologic complaints and Denies wheezing Exam Const: General: comfortable and no acute distress HENMT: Mouth: Yes moist mucous membranes Eyes: Pupils: Equal, round and reactive pupils present EOM: EOMs intact bilaterally Resp: Effort & Inspection: normal respiratory effort Skin: General skin exam: normal color Neuro: Other: AOx3, Pupils equal and reactive bilaterall
--- NOTE | 2023-07-22 10:41 | P.NEURO_ITS ---
Neurology EEG Report General Information Date of Study: 07/22/23 TEST Routine EEG DIAGNOSIS Unresponsiveness CONDITION OF RECORDING Awake, drowsy, asleep EEG NUMBER [id number] CLINICAL HISTORY Patient resides at a senior living, was found down -- unresponsive. No reports of seizure-like activity. Now back to baseline. EEG DESCRIPTION During the awake state with eyes closed the background consists of 8 Hz posterior dominant rhythm which attenuates appropriately with eye opening. The recording is continuous. There is a well developed anterior-posterior gradient. No significant asymmetries of background activities are noted. With drowsiness there is waxing and waning of the dominant rhythm with eventual replacement by a mixture of beta, alpha, and theta activity. As the patient enters stage II sleep, symmetrical spindles and K-complexes are present. Arousal is unremarkable. There are no epileptiform discharges or seizures during this recording. Hyperventilation and photic stimulation were not performed. IMPRESSION This is a normal routine EEG recorded in awake and asleep states. There are no electrographic seizures identified, nor are there any epileptiform discharges. Please note that a normal EEG cannot exclude a seizure disorder. Clinical correlation is recommended.
[2023-07-22 11:57] LABS: Glucose Point of Care 250 mg/dl (65-105)
--- NOTE | 2023-07-22 13:38 | PC.NURSE ---
On 07/22/23, the student, [cSooter Fournier], provided care and completed [facility] documentation on this patient. I have reviewed the student's documentation and agree with the findings.
[2023-07-22 14:00] VITALS: BP 134/67; PULSE 75; RESP 16; TEMP 36.4; O2SAT 100
--- NOTE | 2023-07-22 17:01 | PM.IMPN ---
Progress Note: A&P Assessment and Plan (1) Hypercapnic respiratory failure: Code(s): J96.92 - Respiratory failure, unspecified with hypercapnia Status: Acute (2) Megaloblastic anemia: Code(s): D53.1 - Other megaloblastic anemias, not elsewhere classified Status: Acute (3) B12 deficiency: Code(s): E53.8 - Deficiency of other specified B group vitamins Status: Acute (4) CKD (chronic kidney disease) stage 3, GFR 30-59 ml/min: Qualifiers: Chronic kidney disease stage 3 subtype: stage 3b (GFR 30-44) Qualified Code(s): N18.32 - Chronic kidney disease, stage 3b Code(s): N18.30 - Chronic kidney disease, stage 3 unspecified Status: Acute (5) Altered mental status: Qualifiers: Altered mental status type: coma Coma depth: [place] coma 3-8 Coma timing: at hospital admission Qualified Code(s): R40.2433 - [place] coma scale score 3-8, at hospital admission Code(s): R41.82 - Altered mental status, unspecified Status: Acute (6) Unresponsive: Code(s): R41.89 - Other symptoms and signs involving cognitive functions and awareness Status: Acute Plan Rodríguez Merino is a 68 year old female with a history of intellectual disability, alf resident, diabetes, hypertension, hyperlipidemia presenting after being found down. Patient resides in a alf and at baseline is verbal and ambulatory. She was found down in her room, for an unknown period of time. She was taken to [place] ED where CT head showed no acute changes. CT Chest abdo and pelvis was nl. Pt was hypothermic on arrival to the ED and was treated with Kelsey Hugger ABG showed respiratory acidosis with 7.28/52/68/24. Patient was started on BiPAP. This was subsequently discontinued. Repeat ABG adequate at 7.41/41/72. She has been back to her baseline. No signs of infection WBC count was normal UDS negative, alcohol less than 10. Brain MRI with mild nonspecific cerebral white matter disease likely represent chronic small vessel ischemic disease otherwise negative EEG reported to be negative neurology has been consulted. No prior history of seizure Mild chronic anemia FOBT negative CKD stage 3 at baseline creatinine level Bacteremia with blood culture positive for Gram-positive cocci in clusters 1/4 could be contamination will await identification. Acute hypercapnic respiratory failure secondary to altered mental status needed BiPAP on admission. Now off. No evidence of primary pulmonary process. DVT prophylaxis Lovenox Code status full code Type 2 diabetes on insulin home doses Subjective Date/time seen: 07/22/23 17:01 Interval history: Rodríguez Merino is a 68 year old female with a history of intellectual disability, alf resident, diabetes, hypertension, hyperlipidemia presenting after being found down. Patient resides in a alf and at baseline is verbal and ambulatory. She was found down in her room, for an unknown period of time. She was taken to [place] ED where CT head showed no acute changes. CT Chest abdo and pelvis was nl. Pt was hypothermic on arrival to the ED and was treated with Kelsey Hugger ABG showed respiratory acidosis with 7.28/52/68/24. Patient was started on BiPAP. This was subsequently discontinued. Repeat ABG adequate at 7.41/41/72. She has been back to her baseline. No signs of infection WBC count was normal UDS negative, alcohol less than 10. Brain MRI with mild nonspecific cerebral white matter disease likely represent chronic small vessel ischemic disease otherwise negative EEG reported to be negative neurology has been consulted. No prior history of seizure Mild chronic anemia FOBT negative CKD stage 3 at baseline creatinine level Bacteremia with blood culture positive for Gram-positive cocci in clusters 1/4 could be contamination will await identification. Acute hypercapnic respiratory failure secondary to altered mental status needed BiP
[2023-07-22 17:22] LABS: Glucose Point of Care 173 mg/dl (65-105)
[2023-07-22] MEDS: GABAPENTIN 300 MG CAPSULE PO (18:14)
[2023-07-22 19:17] VITALS: BP 124/69; PULSE 75; RESP 16; TEMP 36.6; O2SAT 100
[2023-07-22 20:16] LABS: Glucose Point of Care 249 mg/dl (65-105)
[2023-07-22] MEDS: INSULIN GLARGINE (*BKC) 100 UNITS/ML 18 UNITS SUB-Q (20:25)
[2023-07-23 04:52] VITALS: BP 124/68; PULSE 69; RESP 16; TEMP 36.9; O2SAT 97
[2023-07-23 06:05] LABS: Basophils Percent Auto 0.5 % (0.2-1.2); Eosinophils Absolute Auto 0.2 K/mm3 (0-0.3); Eosinophils Percent Auto 2.3 % (0-4.4); Hematocrit 30.6 % (37.0-47.0); Hemoglobin 9.5 g/dL (12.0-15.0); Immature Granulocyte Absolute 0.02 K/mm3 (0.00-0.031); Immature Granulocyte Percent A 0.3 % (0-0.5); Lymphocytes Absolute Auto 2.48 K/mm3 (0.9-3.2); Lymphocytes Percent Auto 33.5 % (18.3-44.2); Mean Corpuscular Hemoglobin 30.7 pg (26-34); Mean Platelet Volume 8.9 fl (7.4-10.4); Monocytes Absolute Auto 0.5 K/mm3 (0.1-0.6); Monocytes Percent Auto 6.3 % (2.6-8.5); Neutrophils Absolute Auto 4.2 K/mm3 (1.3-6.7); Neutrophils Percent Auto 57.1 % (45.5-73.1); Platelet Count Result 285 k/mm3 (150-375); Red Blood Count 3.09 M/mm3 (4.2-5.4); Red Cell Distribution Width 12.6 % (11.5-14.5); White Blood Count 7.4 K/mm3 (4.5-10.0)
[2023-07-23 06:30] LABS: Alanine Aminotransferase 28 U/L (6-35); Albumin Level 3.7 g/dL (3.5-5.1); Alkaline Phosphatase 67 U/L (38-126); Anion Gap 7 mmol/L (8-16); Aspartate Amino Transferase 32 U/L (14-36); Bilirubin,Total 0.3 mg/dL (0.2-1.3); Blood Urea Nitrogen 14 mg/dL (7-17); Calcium 9.5 mg/dL (8.4-10.2); Carbon Dioxide 27 mmol/L (22-30); Chloride 107 mmol/L (98-107); Estimated CRCL calculation 38 ml/min; Estimated Glomerular Filt Rate 50; Glucose 162 mg/dL (65-110); Magnesium 1.8 mg/dL (1.6-2.3); Potassium 4.3 mmol/L (3.4-5.0); Sodium 141 mmol/L (137-145)
[2023-07-23 08:35] LABS: Glucose Point of Care 141 mg/dl (65-105)
[2023-07-23] MEDS: INSULIN ASPART (*BKC) 100 UNITS/ML SUB-Q ×3 (08:50→17:40)
[2023-07-23 10:16] VITALS: BP 125/66; PULSE 82; RESP 16; O2SAT 97
[2023-07-23] MEDS: BACLOFEN 5 MG TABLET PO ×3 (10:17→17:55)
[2023-07-23] MEDS: POTASSIUM CHLORIDE 10 MEQ ER TABLET PO (10:17)
[2023-07-23] MEDS: MAGNESIUM OXIDE 400 MG TABLET PO ×2 (10:18→17:55)
[2023-07-23] MEDS: LORATADINE 10 MG TABLET PO (10:18)
[2023-07-23] MEDS: SENNOSIDES 8.6 MG TABLET PO ×2 (10:18→17:55)
[2023-07-23] MEDS: DOCUSATE SODIUM 100 MG CAPSULE PO ×2 (10:18→17:55)
[2023-07-23] MEDS: CHLORTHALIDONE 25 MG TABLET PO (10:18)
[2023-07-23] MEDS: FERROUS SULFATE 325 MG TABLET DR BY MOUTH ×3 (10:18→17:55)
[2023-07-23] MEDS: FLUoxetine HCL 10 MG CAPSULE PO (10:18)
[2023-07-23] MEDS: ATORVASTATIN 40 MG TABLET 80 MG PO (10:18)
[2023-07-23] MEDS: ACETAMINOPHEN 325 MG TABLET 650 MG PO ×2 (10:18→17:55)
[2023-07-23] MEDS: BRIMONIDINE TARTRATE 0.2% OP SOLN 5 ML BTL 1 DROP EACH EYE (10:18)
[2023-07-23 12:19] LABS: Glucose Point of Care 196 mg/dl (65-105)
--- NOTE | 2023-07-23 13:35 | PM.DS ---
DS: Admitting Diagnosis Discharge Date 07/23/2023 Admitting Diagnosis altered mental status DS: Discharge Diagnosis Discharge Diagnosis (1) Hypercapnic respiratory failure: Code(s): J96.92 - Respiratory failure, unspecified with hypercapnia Status: Acute (2) Megaloblastic anemia: Code(s): D53.1 - Other megaloblastic anemias, not elsewhere classified Status: Acute (3) B12 deficiency: Code(s): E53.8 - Deficiency of other specified B group vitamins Status: Acute (4) CKD (chronic kidney disease) stage 3, GFR 30-59 ml/min: Qualifiers: Chronic kidney disease stage 3 subtype: stage 3b (GFR 30-44) Qualified Code(s): N18.32 - Chronic kidney disease, stage 3b Code(s): N18.30 - Chronic kidney disease, stage 3 unspecified Status: Acute (5) Altered mental status: Qualifiers: Altered mental status type: coma Coma depth: [place] coma 3-8 Coma timing: at hospital admission Qualified Code(s): R40.2433 - [place] coma scale score 3-8, at hospital admission Code(s): R41.82 - Altered mental status, unspecified Status: Acute (6) Unresponsive: Code(s): R41.89 - Other symptoms and signs involving cognitive functions and awareness Status: Acute DS: Summary Hospital Course Hospital Course: Rodríguez Merino is a 68 year old female with a history of intellectual disability, long-term resident, diabetes, hypertension, hyperlipidemia presenting after being found down. Patient resides in a long-term and at baseline is verbal and ambulatory. She was found down in her room, for an unknown period of time.? She was taken to [place] ED where CT head showed no acute changes. CT Chest abdo and pelvis was nl. Pt was hypothermic on arrival to the ED and was treated with Kelsey Hugger ABG showed respiratory acidosis with 7.28/52/68/24.? Patient was started on BiPAP.? This was subsequently discontinued.? Repeat ABG adequate at 7.41/41/72.? She has been back to her baseline.? No signs of infection WBC count was normal UDS negative, alcohol less than 10.? Brain MRI with mild nonspecific cerebral white matter disease likely represent chronic small vessel ischemic disease otherwise negative EEG reported to be negative neurology has been consulted.? No prior history of seizure . Blood pressure was borderline when she arrived the medications he was on. No definitive source of infection was identified. Her blood pressure medication will be stopped at discharge has blood pressure was stable without dose blood pressure medication during the hospital stay. This will likely are might need to be restarted she follows up with her primary care she was also not hypoglycemic when she arrived to the ER and her blood sugar was monitored throughout the hospital stay. Mild chronic anemia FOBT negative CKD stage 3 at baseline creatinine level Bacteremia with blood culture positive for Gram-positive cocci in clusters 1/4 could be contamination this is identified as staphylococcal epidermidis. Acute hypercapnic respiratory failure secondary to altered mental status needed BiPAP on admission.? Now off.? No evidence of primary pulmonary process. DVT prophylaxis Lovenox Code status full code Type 2 diabetes on insulin home doses Time Spent with Patient Time attestation: Total time spent providing and/or coordinating discharge services: 35 minutes Exam Narrative: GENERAL:? Well-nourished, alert and oriented x3 HEAD: Normocephalic, atraumatic. EYES: PERRLA EOMI ENT: Nares clear, no rhinorrhea or epistaxis.? Mucous membranes moist. NECK: Supple. CHEST: Clear to auscultation.? No respiratory distress. HEART: Regular rate and rhythm. ABDOMEN: Soft,? nondistended. EXTREMITIES:? No spontaneous motion.? No edema. SKIN: Warm, dry, no rash. NEURO:? alert and oriented x3 no focal motor deficits PSYCH:? normal mood DS: Data Data Completed and Pending Labs on day of discharge: Labs from [facility]
[2023-07-23 14:00] VITALS: BP 138/76; PULSE 79; RESP 16; TEMP 36.6; O2SAT 100
[2023-07-23 16:58] LABS: SARS-CoV-2 RNA PCR Negative (Negative)
[2023-07-23 17:28] LABS: Glucose Point of Care 135 mg/dl (65-105)
[2023-07-23] MEDS: GABAPENTIN 300 MG CAPSULE PO (17:55)
== END 2023-07-23 18:20 | DRG 52 ==
LOC: ANHED 07-20 03:11 → ANHIMU 07-20 05:00 → ANHICU 07-20 07:45 → ANH2MED 07-21 11:08
PROVIDERS: Family Medicine; Internal Medicine Pulmonary Disease; Admitting Provider Internal Medicine; Emergency Provider Emergency Medicine; Visit Provider Internal Medicine
DX: G93.40 Encephalopathy, unspecified (principal); J96.02 Acute respiratory failure with hypercapnia; R78.81 Bacteremia; R68.0 Hypothermia, not associated with low environmental temperature; D53.1 Other megaloblastic anemias, not elsewhere classified; B95.7 Other staphylococcus as the cause of diseases classified elsewhere; D64.9 Anemia, unspecified; E11.22 Type 2 diabetes mellitus with diabetic chronic kidney disease; E53.8 Deficiency of other specified B group vitamins; E78.5 Hyperlipidemia, unspecified; F79 Unspecified intellectual disabilities; H40.9 Unspecified glaucoma; I12.9 Hypertensive chronic kidney disease with stage 1 through stage 4 chronic kidney disease, or unspecified chronic kidney disease; K21.9 Gastro-esophageal reflux disease without esophagitis; N18.32 Chronic kidney disease, stage 3b; Z11.52 Encounter for screening for COVID-19; Z79.4 Long term (current) use of insulin; Z79.84 Long term (current) use of oral hypoglycemic drugs
CPT/HCPCS: 36415; 36600; 70450; 70553; 71260; 72125; 74177; 80048; 80053; 80307; 81001; 82274; 82607; 82746; 82805; 82948; 83605; 83735; 85025; 85610; 85730; 86850; 86900; 86901; 87040; 87086; 87088; 87147; 87181; 87186; 87635; 87637; 92523; 92610; 93005; 94002; 94660; 95816; 97161; 97165; 99285; A9270; A9577; J1815; J2405; J7030; Q9967

== ENCOUNTER 2024-02-18 20:42 | Emergency (ER) | payer OTHER, SELFPAY ==
--- NOTE | ~2024-02-18 | CT_ITS ---
CT cervical spine wo con Ordering provider: South Hurtado MD History: . fall, hit head . Comparison: None. Technique: CT of the cervical spine was performed without contrast. Sagittal and coronal reformatted images were also obtained and reviewed. Radiation reduction technique utilized. DLP is 432.48 mGy. FINDINGS: VERTEBRAE: No subluxation or acute fracture. The occipital condyles are intact. DISC SPACES: Narrowing of the disc suggestive of Degenerative disc disease at the level of C3-C4, C4- C5, C5-C6 and C6-C7. Multilevel facet joint disease. Multilevel uncovertebral joint osteoarthritic ch anges. Multilevel intervertebral foraminal narrowing. PARASPINOUS SOFT TISSUES: Normal. Dilated esophagus. Clinical evaluation advised IMPRESSION: No acute osseous abnormality cervical spine. Reviewed, dictated and finalized at location A.
--- NOTE | ~2024-02-18 | XR_ITS ---
XR shoulder LT min 2V Ordering provider: South Hurtado MD History: . L shoulder pain AFTER FALL . Comparison: None. FINDINGS: BONES: No acute fracture or dislocation. JOINT SPACES: The acromioclavicular joint shows osteoarthritic changes. The glenohumeral joint shows osteoarthritic changes. SOFT TISSUES: Normal. IMPRESSION: No acute osseous abnormality left shoulder. Reviewed, dictated and finalized at location A.
--- NOTE | ~2024-02-18 | CT_ITS ---
CT brain wo con Ordering provider: South Hurtado MD History: 68 years Female with . fall, hit head . Comparison: July 19, 2023 Technique: CT of the head without contrast. Radiation reduction technique utilized. DLP is 605.33mGy. FINDINGS: BRAIN PARENCHYMA AND CSF SPACES: No midline shift, mass effect or hemorrhage. The brain parenchyma a nd CSF spaces are otherwise normal. Cavum septum pellucidum is noted. VISUALIZED PARANASAL SINUSES: Left dyspnea sphenoid sinusitis. Thickened wall of the sinuses seen sug gestive of chronic changes. MASTOIDS: Well aerated. BONES: The bones appear intact. SOFT TISSUES: Visualized nasopharynx is normal. Superficial soft tissues are normal. IMPRESSION: No acute intracranial findings. Chronic sphenoid sinusitis. Reviewed, dictated and finalized at location A.
[2024-02-18 21:09] VITALS: BP 132/81; PULSE 73; RESP 16; TEMP 36.4; O2SAT 97
[2024-02-19 00:23] VITALS: BP 134/81; PULSE 68; RESP 19; O2SAT 98
--- NOTE | 2024-02-19 00:53 | ED.FALL ---
HPI - Fall General Chief Complaint: Fall Stated Complaint: fall Time Seen by Provider: 02/19/24 00:28 Source: patient Mode of arrival: EMS Limitations: other ( poor historian) History of Present Illness HPI Narrative: This is a 68-year-old female that presents to the emergency department after a head injury tonight at nursing facility. Reports she fell out of bed and hit her head on some furniture. She did not lose consciousness. Also reporting injury to the left shoulder. Denies vision changes, vomiting, numbness, weakness. Related Data Home Medications Medication Instructions Recorded Confirmed atorvastatin 80 mg tablet 80 mg PO DAILY 07/02/21 07/20/23 chlorthalidone 25 mg tablet 25 mg PO DAILY 07/02/21 07/20/23 ergocalciferol (vitamin D2) 1,250 1,250 mcg WEEKLY 07/02/21 07/20/23 mcg (50,000 unit) capsule ferrous sulfate 325 mg (65 mg 325 mg PO TID 07/02/21 07/20/23 iron) tablet fluoxetine 40 mg capsule 10 mg PO DAILY 07/02/21 07/20/23 gabapentin 300 mg capsule 300 mg PO QPM 07/02/21 07/20/23 insulin glargine 100 unit/mL 18 unit subcut HS 07/02/21 07/20/23 subcutaneous solution (Lantus U-100 Insulin) insulin lispro 100 unit/mL 4 unit subcut TIDWM 07/02/21 07/20/23 subcutaneous solution latanoprost 0.005 % eye drops 1 drp EACH EYE QPM 07/02/21 07/20/23 acetaminophen 325 mg tablet 650 mg PO BID 07/20/23 07/20/23 acetaminophen 325 mg tablet 650 mg PO Q4H PRN Pain 07/20/23 07/20/23 baclofen 5 mg tablet 5 mg PO TID 07/20/23 07/20/23 brimonidine 0.2 % eye drops 1 drp EACH EYE BID 07/20/23 07/20/23 docusate sodium 100 mg capsule 100 mg PO BID 07/20/23 07/20/23 glucagon 1 mg injection kit 1 mg IM ONCE PRN low blood sugar 07/20/23 07/20/23 loratadine 10 mg tablet 10 mg PO DAILY 07/20/23 07/20/23 magnesium oxide 400 mg PO BID 07/20/23 07/20/23 polyethylene glycol 1 ea miscellaneous PRN PRN bowel 07/20/23 07/20/23 management potassium chloride 10 mEq 10 meq PO DAILY 07/20/23 07/20/23 tablet,extended release (Klor-Con) sennosides 8.6 mg tablet (senna) 8.6 mg PO BID 07/20/23 07/20/23 Allergies Allergy/AdvReac Type Severity Reaction Status Date / Time No Known Allergies Allergy Verified 07/02/21 13:06 Review of Systems Review of Systems: CONSTITUTIONAL: Denies fever EYES: Denies visual changes GASTROINTESTINAL: Denies vomiting MUSCULOSKELETAL: Reports joint pain and myalgia. Denies back pain NEUROLOGIC: Denies numbness, or weakness. All systems reviewed & are unremarkable except as noted in HPI and below PMFSH Past Medical History Medical History B12 deficiency CKD (chronic kidney disease) stage 3, GFR 30-59 ml/min GERD (gastroesophageal reflux disease) Glaucoma Hypertension Insulin dependent type 2 diabetes mellitus Intellectual delay Surgical History Surgical History Status post closed fracture of left femur (06/2021) Intramedullary screw Family History Family History Other Diabetes mellitus Hypertension Social History Social History Social History: Surrogate decision maker: Cathy Rae group social worker. Code status: Full code. Smoking status: Unknown if ever smoked Alcohol intake: never Substance use: never Substance use type: does not use Additional living arrangements comments: Resident of [facility]. Additional occupation/education comments: Disabled. Exam Narrative: GENERAL: Well-appearing, well-nourished, and in no acute distress. HEAD: Normocephalic, atraumatic. EYES: PERRLA and EOMI. ENT: Nares clear, no rhinorrhea or epistaxis. Mucous membranes moist. Oropharynx without tonsillar hypertrophy exudate or other lesions. Bilateral TMs pearly goetz non-bulging NECK: Supple. No adenopathy or masses. No midline spinal tenderness
--- NOTE | 2024-02-19 01:11 | PC.NURSE ---
Report to David at [facility]
== END 2024-02-19 01:49 ==
LOC: ANHED 02-19 01:12
PROVIDERS: Emergency Provider Physician Assistant
DX: S09.90XA Unspecified injury of head, initial encounter (principal); S49.92XA Unspecified injury of left shoulder and upper arm, initial encounter; E11.22 Type 2 diabetes mellitus with diabetic chronic kidney disease; I12.9 Hypertensive chronic kidney disease with stage 1 through stage 4 chronic kidney disease, or unspecified chronic kidney disease; N18.30 Chronic kidney disease, stage 3 unspecified; E11.39 Type 2 diabetes mellitus with other diabetic ophthalmic complication; H42 Glaucoma in diseases classified elsewhere; E53.8 Deficiency of other specified B group vitamins; K21.9 Gastro-esophageal reflux disease without esophagitis; F81.9 Developmental disorder of scholastic skills, unspecified; J32.3 Chronic sphenoidal sinusitis; Z79.4 Long term (current) use of insulin; Z79.899 Other long term (current) drug therapy; W06.XXXA Fall from bed, initial encounter
CPT/HCPCS: 70450; 72125; 73030; 99284

== ENCOUNTER 2024-03-19 18:03 | Inpatient (IN) | payer OTHER, SELFPAY ==
--- NOTE | ~2024-03-19 | CT_ITS ---
EXAMINATION: CT brain wo con DATE: 03/19/2024 21:35 INDICATION: mental status . TECHNIQUE: Computed tomography (CT) of the head was performed without intravenous contrast. The mA wa s adjusted according to patient size. Iterative reconstruction technique was employed. The dose-lengt h product was 908.00 mGy-cm. COMPARISON: 02/18/2024. FINDINGS: No acute intracranial hemorrhage or extra-axial fluid collection. No hydrocephalus, mass, or herniation. No acute ischemic infarct. Unremarkable dural venous sinus attenuation. No acute osseous abnormality. Left sphenoid opacification with surrounding sclerosis, the remaining aerated spaces are clear. Cavum septum pellucidum. IMPRESSION: No acute intracranial process. Chronic left sphenoid sinusitis. Reviewed, dictated and finalized at location K.
--- NOTE | ~2024-03-19 | XR_ITS ---
Left Shoulder Technique: AP and scapular Y views were obtained. Clinical History: Pain Findings: No fracture or dislocation is seen. Osseous alignment is anatomic. The glenohumeral and acr omioclavicular joints demonstrate minimal degenerative change. Soft tissues are unremarkable. Impression: Minimal degenerative changes, as above. Reviewed, dictated and finalized at location . Impression: Minimal degenerative changes, as above.
--- NOTE | ~2024-03-19 | CT_ITS ---
EXAMINATION: CT abdomen pelvis w con DATE: 03/19/2024 21:44 INDICATION: abdominal pain, nausea TECHNIQUE: Computed tomography (CT) of the abdomen and pelvis was performed with 100 mL Omnipaque-350 intravenous contrast. Automated exposure control and iterative reconstruction technique were employe d. The dose-length product was 1137.52 mGy-cm. COMPARISON: 07/19/2023. FINDINGS: Lower thorax: Coronary artery and right hilar node calcification. Bibasilar scar/atelectasis. Liver: Right lobe cyst/hemangioma. Biliary/Gallbladder: Gallbladder is normal. No bile duct dilation. Pancreas: No mass or duct dilation. Spleen: Normal. Adrenals:No mass. Kidneys: No suspicious mass, obstructing stone, or hydronephrosis. Bilateral cortical thinning and sc arring. GI tract: Mild distal esophageal and gastric wall edema. No small or large bowel dilation. Normal tanya endix. Mesentery/Peritoneum: No ascites, mass, or free air. Retroperitoneum: No mass. Atherosclerotic abdominal aortic and/or arterial calcifications. Pelvis: Moderately distended urinary bladder with mild wall thickening. Gas in the bladder lumen. Nor mal uterus and bilateral ovaries. Soft Tissues: Soft tissues and body wall unremarkable. Bones: No acute osseous finding. Uncomplicated fixation screws in the left femoral neck. IMPRESSION: Mild esophagitis/gastritis. Distended urinary bladder with mild wall thickening and intraluminal gas. Correlate with history of r ecent catheterization or procedure and with urinalysis. Otherwise, no acute abdominopelvic process detected. Reviewed, dictated and finalized at location K. IMPRESSION: Mild esophagitis/gastritis. Distended urinary bladder with mild wall thickening and intraluminal gas. Corre late with history of recent catheterization or procedure and with urinalysis. Otherwise, no acute abdominopelvic process detected.
[2024-03-19 18:13] VITALS: BP 101/57; PULSE 73; RESP 18; TEMP 36.2; O2SAT 95
[2024-03-19 18:45] LABS: Basophils Percent Auto 0.3 % (0.2-1.2); Eosinophils Absolute Auto 0.1 K/mm3 (0-0.3); Eosinophils Percent Auto 1.1 % (0-4.4); Hematocrit 26.8 % (37.0-47.0); Hemoglobin 8.8 g/dL (12.0-15.0); Immature Granulocyte Absolute 0.06 K/mm3 (0.00-0.031); Immature Granulocyte Percent A 0.6 % (0-0.5); Lymphocytes Absolute Auto 2.09 K/mm3 (0.9-3.2); Lymphocytes Percent Auto 19.8 % (18.3-44.2); Mean Corpuscular HGB Conc 32.8 g/dl (32-36); Mean Corpuscular Hemoglobin 31.7 pg (26-34); Mean Corpuscular Volume 96.4 fl (80-100); Mean Platelet Volume 9.2 fl (7.4-10.4); Monocytes Absolute Auto 0.5 K/mm3 (0.1-0.6); Neutrophils Absolute Auto 7.8 K/mm3 (1.3-6.7); Neutrophils Percent Auto 73.2 % (45.5-73.1); Platelet Count Result 239 k/mm3 (150-375); Red Blood Count 2.78 M/mm3 (4.2-5.4); Red Cell Distribution Width 13.1 % (11.5-14.5); White Blood Count 10.6 K/mm3 (4.5-10.0)
--- NOTE | 2024-03-19 19:26 | ED.GENADULT ---
HPI - General Adult General Chief complaint: Nausea/Vomiting/Diarrhea Stated complaint: lethargy, n/v Time Seen by Provider: 03/19/24 19:17 History of Present Illness HPI narrative: Patient is a 68 year old female with history of hypertension, HLD, DM, intellectual disability who came into the ER today with nausea, vomiting and abdominal pain. She notes that symptoms began today. She does not know how many times she has thrown up. She does note abdominal pain and diarrhea today. She is unsure if she has had sick contacts. She is reportedly more tired than usual. She denies cough, congestion, chest pain, shortness of breath. Related Data Home Medications Medication Instructions Recorded Confirmed atorvastatin 80 mg tablet 80 mg PO DAILY 07/02/21 07/20/23 chlorthalidone 25 mg tablet 25 mg PO DAILY 07/02/21 07/20/23 ergocalciferol (vitamin D2) 1,250 1,250 mcg WEEKLY 07/02/21 07/20/23 mcg (50,000 unit) capsule ferrous sulfate 325 mg (65 mg 325 mg PO TID 07/02/21 07/20/23 iron) tablet fluoxetine 40 mg capsule 10 mg PO DAILY 07/02/21 07/20/23 gabapentin 300 mg capsule 300 mg PO QPM 07/02/21 07/20/23 insulin glargine 100 unit/mL 18 unit subcut HS 07/02/21 07/20/23 subcutaneous solution (Lantus U-100 Insulin) insulin lispro 100 unit/mL 4 unit subcut TIDWM 07/02/21 07/20/23 subcutaneous solution latanoprost 0.005 % eye drops 1 drp EACH EYE QPM 07/02/21 07/20/23 acetaminophen 325 mg tablet 650 mg PO BID 07/20/23 07/20/23 acetaminophen 325 mg tablet 650 mg PO Q4H PRN Pain 07/20/23 07/20/23 baclofen 5 mg tablet 5 mg PO TID 07/20/23 07/20/23 brimonidine 0.2 % eye drops 1 drp EACH EYE BID 07/20/23 07/20/23 docusate sodium 100 mg capsule 100 mg PO BID 07/20/23 07/20/23 glucagon 1 mg injection kit 1 mg IM ONCE PRN low blood sugar 07/20/23 07/20/23 loratadine 10 mg tablet 10 mg PO DAILY 07/20/23 07/20/23 magnesium oxide 400 mg PO BID 07/20/23 07/20/23 polyethylene glycol 1 ea miscellaneous PRN PRN bowel 07/20/23 07/20/23 management potassium chloride 10 mEq 10 meq PO DAILY 07/20/23 07/20/23 tablet,extended release (Klor-Con) sennosides 8.6 mg tablet (senna) 8.6 mg PO BID 07/20/23 07/20/23 Allergies Allergy/AdvReac Type Severity Reaction Status Date / Time No Known Allergies Allergy Verified 07/02/21 13:06 Review of Systems Review of Systems: All systems reviewed & are unremarkable except as noted in HPI and below PMFSH Past Medical History Medical History B12 deficiency CKD (chronic kidney disease) stage 3, GFR 30-59 ml/min GERD (gastroesophageal reflux disease) Glaucoma Hypertension Insulin dependent type 2 diabetes mellitus Intellectual delay Surgical History Surgical History Status post closed fracture of left femur (06/2021) Intramedullary screw Family History Family History Other Diabetes mellitus Hypertension Social History Social History Social History: Surrogate decision maker: Cathy Rae social security specialist. Code status: Full code. Smoking status: Unknown if ever smoked Alcohol intake: never Substance use: never Substance use type: does not use Additional living arrangements comments: Resident of [facility]. Additional occupation/education comments: Disabled. Exam Narrative: GENERAL: Well-appearing, well-nourished, and in no acute distress. HEAD: Normocephalic, atraumatic. EYES: PERRLA and EOMI. ENT: Nares clear. Mucous membranes moist. NECK: Supple. CHEST: Clear to auscultation. No respiratory distress. HEART: Regular rate and rhythm. Normal peripheral pulses. ABDOMEN: Soft, diffused abdominal tenderness without rebound or guarding, nondistended. EXTREMITIES: Normal range of motion. No edema. SKIN: Warm, dry, no rash. NEURO: No focal defi
[2024-03-19] MEDS: ONDANSETRON INJ 4 MG/2 ML VIAL IV PUSH (19:48)
[2024-03-19] MEDS: PANTOPRAZOLE SODIUM IV 40 MG VIAL IV PUSH (19:48)
[2024-03-19] MEDS: LACTATED RINGERS 1,000 ML 999 ML IV CONT (19:48)
[2024-03-19 20:57] LABS: Influenza A QL RT-PCR Negative (Negative); Influenza B QL RT-PCR Negative (Negative); RSV RNA, RT-PCR Negative (Negative); SARS-CoV-2 RNA PCR Negative (Negative)
[2024-03-19 21:13] LABS: Lactic Acid Reflex 1.6 mmol/L (0.7-2.0)
[2024-03-19 21:15] LABS: Alanine Aminotransferase 17 U/L (6-35); Albumin Level 3.4 g/dL (3.5-5.1); Alkaline Phosphatase 76 U/L (38-126); Anion Gap 5 mmol/L (4-12); Aspartate Amino Transferase 20 U/L (14-36); Bilirubin,Total 0.1 mg/dL (0.2-1.3); Blood Urea Nitrogen 24 mg/dL (7-17); Calcium 8.4 mg/dL (8.4-10.2); Carbon Dioxide 28 mmol/L (22-30); Chloride 102 mmol/L (98-107); Estimated CRCL calculation 33 ml/min; Estimated Glomerular Filt Rate 42; Glucose 159 mg/dL (65-110); Lipase 94 U/L (23-300); Potassium 4.1 mmol/L (3.4-5.0); Sodium 135 mmol/L (137-145)
[2024-03-19 22:12] LABS: Appearance Urine Clear (Clear); Bacteria Urine 4+ /hpf; Bilirubin Urine Negative (Negative); Blood Urine Negative (Negative); Color Urine Yellow (Yellow); Glucose Urine UA Negative (Negative); Ketones Urine Negative (Negative); Leukocyte Esterase Ur 1+ LEU/UL (Negative); Nitrate Urine Negative (Negative); Protein Urine 1+ mg/dL (Negative); RBC Urine 0-2 /hpf (0-2); Specific Grav Ur 1.022 (1.001-1.035); Squamous Epithelial Cell Urine None Seen /hpf (Few); Urobilinogen Urine 0.2 mg/dL (<2.0); WBC Urine 21-50 /hpf (0-3)
[2024-03-19 22:15] LABS: Add Urine Microscopic? YES
--- NOTE | 2024-03-19 22:29 | PM.IMHP ---
H&P: HPI History of Present Illness Date/Time: 03/19/24 22:29 Chief Complaint: ams Narrative: this is a 68-year-old female with past medical history of developmental delay, insulin-dependent diabetes mellitus, hypertension. Patient resides at [facility]. Comes due to altered mental status here patient is unable to participate in a meaningful way history taking preliminary workup was significant for urinalysis with numerous WBCs present. EXAMINATION: CT brain wo con DATE: 03/19/2024 21:35 INDICATION: mental status . TECHNIQUE: Computed tomography (CT) of the head was performed without intravenous contrast. The mA was adjusted according to patient size. Iterative reconstruction technique was employed. The dose-length product was 908.00 mGy-cm. COMPARISON: 02/18/2024. FINDINGS: No acute intracranial hemorrhage or extra-axial fluid collection. No hydrocephalus, mass, or herniation. No acute ischemic infarct. Unremarkable dural venous sinus attenuation. No acute osseous abnormality. Left sphenoid opacification with surrounding sclerosis, the remaining aerated spaces are clear. Cavum septum pellucidum. IMPRESSION: No acute intracranial process. Chronic left sphenoid sinusitis. EXAMINATION: CT abdomen pelvis w con DATE: 03/19/2024 21:44 INDICATION: abdominal pain, nausea TECHNIQUE: Computed tomography (CT) of the abdomen and pelvis was performed with 100 mL Omnipaque-350 intravenous contrast. Automated exposure control and iterative reconstruction technique were employed. The dose-length product was 1137.52 mGy-cm. COMPARISON: 07/19/2023. FINDINGS: Lower thorax: Coronary artery and right hilar node calcification. Bibasilar scar/atelectasis. Liver: Right lobe cyst/hemangioma. Biliary/Gallbladder: Gallbladder is normal. No bile duct dilation. Pancreas: No mass or duct dilation. Spleen: Normal. Adrenals:No mass. Kidneys: No suspicious mass, obstructing stone, or hydronephrosis. Bilateral cortical thinning and scarring. GI tract: Mild distal esophageal and gastric wall edema. No small or large bowel dilation. Normal appendix. Mesentery/Peritoneum: No ascites, mass, or free air. Retroperitoneum: No mass. Atherosclerotic abdominal aortic and/or arterial calcifications. Pelvis: Moderately distended urinary bladder with mild wall thickening. Gas in the bladder lumen. Normal uterus and bilateral ovaries. Soft Tissues: Soft tissues and body wall unremarkable. Bones: No acute osseous finding. Uncomplicated fixation screws in the left femoral neck. IMPRESSION: Mild esophagitis/gastritis. Distended urinary bladder with mild wall thickening and intraluminal gas. Correlate with history of recent catheterization or procedure and with urinalysis. Otherwise, no acute abdominopelvic process detected. Review of Systems Review of Systems: ROS unobtainable: Yes unobtainable due to mental status (lethargy/obtundation) [facility], [facility] Past Medical History Medical History B12 deficiency CKD (chronic kidney disease) stage 3, GFR 30-59 ml/min GERD (gastroesophageal reflux disease) Glaucoma Hypertension Insulin dependent type 2 diabetes mellitus Intellectual delay Surgical History Surgical History Status post closed fracture of left femur (06/2021) Intramedullary screw Family History Family History Other Diabetes mellitus Hypertension Social History Social History Social History: Surrogate decision maker: Cathy Rae social worker delinquency prevention. Code status: Full code. Smoking status: Unknown if ever smoked Alcohol intake: never Substance use: never Substance use type: does not use Additional living arrangements comments: Resident of [facility]. Additional occupation/educ
[2024-03-19 22:49] VITALS: BP 104/56; PULSE 58; RESP 15; O2SAT 96
[2024-03-20] VITALS (7 sets, daily range): BP systolic 107–123; BP diastolic 51–89; PULSE 63–67; RESP 16–18; TEMP 35.7–36.9; O2SAT 95–99; BMI 24.9
--- NOTE | 2024-03-20 08:05 | PM.IMPN ---
Progress Note: A&P Assessment and Plan (1) Urinary tract infection: Code(s): N39.0 - Urinary tract infection, site not specified Status: Acute Assessment and Plan: - UA: clear appearance with 1+ protein, 1+ leukocytes, 21-50 WBC, 4+ bacteria - UC obtained on 03/19: pending - No previous micro to be reviewed - started on Rocephin 03/19 (2) CKD (chronic kidney disease) stage 3, GFR 30-59 ml/min: Qualifiers: Chronic kidney disease stage 3 subtype: stage 3b (GFR 30-44) Qualified Code(s): N18.32 - Chronic kidney disease, stage 3b Code(s): N18.30 - Chronic kidney disease, stage 3 unspecified Status: Acute Assessment and Plan: BUN/Cr 1.2-1.5 baseline. - Avoid nephrotoxic medications - Renal dosing of medications - Monitor vital signs, I and O's - Monitor serum electrolytes and CBC (3) Hypertension: Code(s): I10 - Essential (primary) hypertension Status: Acute Assessment and Plan: Chronic, well controlled. - Continue to monitor (4) Diabetes type 2, uncontrolled: Code(s): E11.65 - Type 2 diabetes mellitus with hyperglycemia Status: Acute Assessment and Plan: - hypoglycemia protocol - POC blood glucose ACHS - home medication - glargine 13 units, Lispro 4 units TIDWM and glipizide 15 mg BID - correct regimen ordered - continue home regimen Time Spent With Patient Time with patient: 25 - 35 minutes Subjective Date/time seen: 03/20/24 08:05 Interval history: 68 year old female with history of hypertension, HLD, DM, intellectual disability who came into the ER today with nausea, vomiting and abdominal pain. Patient is pleasant lying comfortably in bed. She continues to have slight dysuria, but she denies burning sensation and hematuria. Per ER note, patients care was discussed with [facility] nursing staff who states they will not continue antibiotics even if they are prescribed in the ER until there is a urine culture resulted. Patient notes left shoulder pain. She reports a fall at her facility back in November where she landed on her left shoulder. A shoulder XR shows minimal degenerative change. Patient has full range of motion of the joint. Review of Systems Review of Systems: All systems reviewed & are unremarkable except as noted in HPI and below Exam Narrative: AF HR 66 RR 16 SpO2 98 BP 120/66 General: female in no acute respiratory distress who is nontoxic appearing, lying semi recumbent in bed. HEENT: Normocephalic. Atraumatic. Extraocular movement intact. Sclera clear and anicteric. No facial asymmetry. Chest: Lungs are clear to auscultation bilaterally. No wheezes or crackles. CV: Heart was regular rate and rhythm. S1-S2. No murmurs, gallops, or rubs. Abd: Abdomen was soft. Nontender. Nondistended. No CVA tenderness. Positive bowel sounds. No organomegaly or masses. Ext: No clubbing, cyanosis, or edema. 2+ DP pulses bilaterally. Full AROM of the left shoulder joint. Neuro: Patient is alert. Cranial nerves 2-12 are intact. Speech is clear. Psych: Normal mood and affect. Patient is pleasant and cooperative. Skin: Warm and dry. No rashes noted. Objective Data Vital Signs Vital Signs: Vital Signs - 24 hr 03/19/24 18:13 03/19/24 22:49 03/20/24 00:30 Temperature 97.1 F L 96.3 F L Pulse Rate 73 58 L 63 Respiratory Rate 18 15 18 Blood Pressure 101/57 L 104/56 L 117/60 Pulse Oximetry 95 96 98 Oxygen Delivery Room Air 03/20/24 04:00 03/20/24 05:00 Temperature 96.5 F L Pulse Rate 67 Respiratory Rate 18 Blood Pressure 107/51 L Pulse Oximetry 98 99 Oxygen Delivery Room Air Intake/Output Intake/Output: Intake & Output 03/17/24 03/18/24 03/19/24 03/20/24 23:59 23:59 23:59 23:59 Intake Total 1050 222 Balance 1050 222 Meds/Results Medications: Active Medications Generic Name Dose Route Start Last Admin Trade Name Freq PRN Reason Stop Dose Admin Acetaminophen 650 mg 0
[2024-03-20 08:26] LABS: Basophils Percent Auto 0.4 % (0.2-1.2); Eosinophils Absolute Auto 0.1 K/mm3 (0-0.3); Eosinophils Percent Auto 0.9 % (0-4.4); Hemoglobin 9.9 g/dL (12.0-15.0); Immature Granulocyte Absolute 0.03 K/mm3 (0.00-0.031); Immature Granulocyte Percent A 0.4 % (0-0.5); Lymphocytes Absolute Auto 3.04 K/mm3 (0.9-3.2); Lymphocytes Percent Auto 35.7 % (18.3-44.2); Mean Corpuscular HGB Conc 31.9 g/dl (32-36); Mean Corpuscular Hemoglobin 31.2 pg (26-34); Mean Corpuscular Volume 97.8 fl (80-100); Mean Platelet Volume 8.5 fl (7.4-10.4); Monocytes Absolute Auto 0.4 K/mm3 (0.1-0.6); Monocytes Percent Auto 4.8 % (2.6-8.5); Neutrophils Absolute Auto 4.9 K/mm3 (1.3-6.7); Neutrophils Percent Auto 57.8 % (45.5-73.1); Platelet Count Result 240 k/mm3 (150-375); Red Blood Count 3.17 M/mm3 (4.2-5.4); Red Cell Distribution Width 13.2 % (11.5-14.5); White Blood Count 8.5 K/mm3 (4.5-10.0)
[2024-03-20 08:40] LABS: Alanine Aminotransferase 18 U/L (6-35); Albumin Level 3.7 g/dL (3.5-5.1); Alkaline Phosphatase 70 U/L (38-126); Anion Gap 6 mmol/L (4-12); Aspartate Amino Transferase 22 U/L (14-36); Bilirubin,Total 0.2 mg/dL (0.2-1.3); Blood Urea Nitrogen 23 mg/dL (7-17); Calcium 8.9 mg/dL (8.4-10.2); Carbon Dioxide 31 mmol/L (22-30); Chloride 101 mmol/L (98-107); Estimated CRCL calculation 32 ml/min; Estimated Glomerular Filt Rate 39; Glucose 128 mg/dL (65-110); Potassium 4.5 mmol/L (3.4-5.0); Sodium 138 mmol/L (137-145)
[2024-03-20] MEDS: INSULIN ASPART (*BKC) 100 UNITS/ML SUB-Q ×3 (09:24→17:34)
[2024-03-20] MEDS: LORATADINE 10 MG TABLET PO (09:25)
[2024-03-20] MEDS: ACETAMINOPHEN 325 MG TABLET 650 MG PO ×3 (09:25→20:22)
[2024-03-20] MEDS: FERROUS SULFATE 325 MG TABLET DR PO ×3 (09:25→17:33)
[2024-03-20] MEDS: glipiZIDE 5 MG TABLET 15 MG PO ×2 (09:25→17:33)
[2024-03-20] MEDS: MAGNESIUM OXIDE 400 MG TABLET PO ×2 (09:25→17:33)
[2024-03-20] MEDS: BACLOFEN 5 MG TABLET PO ×3 (09:25→17:33)
[2024-03-20] MEDS: DOCUSATE SODIUM 100 MG CAPSULE PO ×2 (09:26→20:13)
[2024-03-20] MEDS: FLUoxetine HCL 20 MG CAPSULE 40 MG PO (09:26)
[2024-03-20] MEDS: ATORVASTATIN 40 MG TABLET 80 MG PO (09:26)
[2024-03-20] MEDS: CHLORTHALIDONE 25 MG TABLET PO (09:26)
[2024-03-20] MEDS: SENNOSIDES 8.6 MG TABLET PO ×2 (09:26→20:13)
[2024-03-20] MEDS: BRIMONIDINE TARTRATE 0.2% OP SOLN 5 ML BTL 1 DROP EACH EYE ×2 (09:26→20:14)
[2024-03-20 11:35] LABS: Glucose Point of Care 178 mg/dl (65-105)
[2024-03-20 16:51] LABS: Glucose Point of Care 118 mg/dl (65-105)
[2024-03-20] MEDS: GABAPENTIN 300 MG CAPSULE PO (17:33)
[2024-03-20] MEDS: LATANOPROST 0.005% OP SOLN 2.5 ML BTL 1 DROP EACH EYE (18:51)
[2024-03-20 20:12] LABS: Glucose Point of Care 71 mg/dl (65-105)
[2024-03-21] MEDS: ACETAMINOPHEN 325 MG TABLET 650 MG PO ×2 (05:22→08:25)
[2024-03-21 05:46] LABS: Glucose Point of Care 163 mg/dl (65-105)
[2024-03-21 05:54] VITALS: BP 115/93; PULSE 66; RESP 18; TEMP 35.9; O2SAT 100
[2024-03-21 06:33] LABS: Basophils Percent Auto 0.5 % (0.2-1.2); Eosinophils Absolute Auto 0.2 K/mm3 (0-0.3); Eosinophils Percent Auto 3.1 % (0-4.4); Hematocrit 32.7 % (37.0-47.0); Hemoglobin 10.1 g/dL (12.0-15.0); Immature Granulocyte Absolute 0.01 K/mm3 (0.00-0.031); Immature Granulocyte Percent A 0.2 % (0-0.5); Lymphocytes Absolute Auto 2.85 K/mm3 (0.9-3.2); Lymphocytes Percent Auto 45.9 % (18.3-44.2); Mean Corpuscular HGB Conc 30.9 g/dl (32-36); Mean Corpuscular Hemoglobin 30.7 pg (26-34); Mean Corpuscular Volume 99.4 fl (80-100); Mean Platelet Volume 8.7 fl (7.4-10.4); Monocytes Absolute Auto 0.3 K/mm3 (0.1-0.6); Monocytes Percent Auto 5.5 % (2.6-8.5); Neutrophils Absolute Auto 2.8 K/mm3 (1.3-6.7); Neutrophils Percent Auto 44.8 % (45.5-73.1); Platelet Count Result 251 k/mm3 (150-375); Red Blood Count 3.29 M/mm3 (4.2-5.4); Red Cell Distribution Width 12.9 % (11.5-14.5); White Blood Count 6.2 K/mm3 (4.5-10.0)
[2024-03-21 06:48] LABS: Alanine Aminotransferase 18 U/L (6-35); Albumin Level 3.8 g/dL (3.5-5.1); Alkaline Phosphatase 65 U/L (38-126); Anion Gap 9 mmol/L (4-12); Aspartate Amino Transferase 28 U/L (14-36); Bilirubin,Total 0.3 mg/dL (0.2-1.3); Blood Urea Nitrogen 23 mg/dL (7-17); Calcium 8.8 mg/dL (8.4-10.2); Carbon Dioxide 27 mmol/L (22-30); Chloride 101 mmol/L (98-107); Estimated CRCL calculation 38 ml/min; Estimated Glomerular Filt Rate 50; Glucose 164 mg/dL (65-110); Potassium 4.6 mmol/L (3.4-5.0); Sodium 137 mmol/L (137-145)
[2024-03-21 07:27] LABS: Glucose Point of Care 155 mg/dl (65-105)
[2024-03-21] MEDS: FLUoxetine HCL 20 MG CAPSULE 40 MG PO (08:24)
[2024-03-21] MEDS: DOCUSATE SODIUM 100 MG CAPSULE PO (08:25)
[2024-03-21] MEDS: glipiZIDE 5 MG TABLET 15 MG PO (08:25)
[2024-03-21] MEDS: CHLORTHALIDONE 25 MG TABLET PO (08:25)
[2024-03-21] MEDS: BACLOFEN 5 MG TABLET PO ×2 (08:25→12:27)
[2024-03-21] MEDS: SENNOSIDES 8.6 MG TABLET PO (08:25)
[2024-03-21] MEDS: LORATADINE 10 MG TABLET PO (08:25)
[2024-03-21] MEDS: ATORVASTATIN 40 MG TABLET 80 MG PO (08:25)
[2024-03-21] MEDS: FERROUS SULFATE 325 MG TABLET DR PO ×2 (08:25→12:27)
[2024-03-21] MEDS: ERGOCALCIFEROL 50,000 UNITS CAPSULE 50000 UNITS PO (08:25)
[2024-03-21] MEDS: BRIMONIDINE TARTRATE 0.2% OP SOLN 5 ML BTL 1 DROP EACH EYE (08:26)
[2024-03-21] MEDS: INSULIN ASPART (*BKC) 100 UNITS/ML SUB-Q ×2 (08:26→12:27)
[2024-03-21] MEDS: MAGNESIUM OXIDE 400 MG TABLET PO (08:26)
--- NOTE | 2024-03-21 10:48 | PM.DS ---
DS: Admitting Diagnosis Discharge Date 03/21/24 Admitting Diagnosis UTI CKD Hypertension Type 2 diabetes mellitus DS: Discharge Diagnosis Discharge Diagnosis (1) Urinary tract infection: Code(s): N39.0 - Urinary tract infection, site not specified Status: Acute (2) CKD (chronic kidney disease) stage 3, GFR 30-59 ml/min: Qualifiers: Chronic kidney disease stage 3 subtype: stage 3b (GFR 30-44) Qualified Code(s): N18.32 - Chronic kidney disease, stage 3b Code(s): N18.30 - Chronic kidney disease, stage 3 unspecified Status: Acute (3) Hypertension: Code(s): I10 - Essential (primary) hypertension Status: Acute (4) Diabetes type 2, uncontrolled: Code(s): E11.65 - Type 2 diabetes mellitus with hyperglycemia Status: Acute DS: Summary Hospital Course Reason for hospitalization: UTI CKD Hypertension Type 2 diabetes mellitus Hospital Course: This is a 68-year-old female who presented to the hospital on 03/19/2024 with altered mental status. Patient resides at [facility] and was noted to have altered mental status. Workup in the hospital revealed a urinary tract infection. Urine culture showing Klebsiella pneumoniae. Patient was on Rocephin and then switched over to cefdinir oral. Today her vital signs are stable, she is afebrile, she is currently on room air. She is stable for discharge at this time back to her nursing facility. She will need to follow up with her primary care physician in 1 week. Final diagnosis: UTI Status at Discharge Cognitive/behavioral status at discharge: Alert oriented x3 Functional status at discharge: independent ambulation Overall status at discharge: patient is progressing back to baseline Time Spent with Patient Time attestation: Total time spent providing and/or coordinating discharge services: Time spent: Greater than 30 minutes Exam Narrative: General: In no acute distress, well nourished Head: atraumatic, no encephalopathy Eyes: EOMI, PERRLA, sclera clear ENT: moist mucous membranes, nasal passages clear Neck: supple, no JVD, no adenopathy, trachea midline Cardiac: Normal S1 and S2. RRR, No murmur, gallops or friction rubs, peripheral pulses intact. Respiratory: Lungs clear to auscultation, no adventitious lung sounds, currently on room air Gastrointestinal: soft, non-distended, non-tender, normoactive bowel sounds. : voiding without difficulty. Extremities: moves all extremities well, no edema Skin: clean, dry, intact. No wounds or lesions. Neuro: Alert, cranial nerves intact, no neuro deficits. Psych: normal mood, normal affect, interactive DS: Data Data Completed and Pending Completed studies during hospitalization: Head CT Abdomen/pelvis CT Shoulder x-ray Pending studies at discharge: Blood cultures Labs on day of discharge: Labs from last 24 hours 03/21/24 03/21/24 03/21/24 07:22 06:23 05:44 WBC 6.2 RBC 3.29 L Hgb 10.1 L Hct 32.7 L MCV 99.4 MCH 30.7 MCHC 30.9 L RDW 12.9 Plt Count 251 MPV 8.7 Immature Gran % (Auto) 0.2 Neut % (Auto) 44.8 L Lymph % (Auto) 45.9 H Faulk % (Auto) 5.5 Eos % (Auto) 3.1 Baso % (Auto) 0.5 Lymph # (Auto) 2.85 Faulk # (Auto) 0.3 Eos # (Auto) 0.2 Baso # (Auto) 0.0 Abs Immat Gran (auto) 0.01 Absolute Neuts (auto) 2.8 Absolute Nucleated RBC 0.000 Nucleated RBC % 0.0 Sodium 137 Potassium 4.6 Chloride 101 Carbon Dioxide 27 Anion Gap 9 BUN 23 H Creatinine 1.30 H Estim Creat Clear Calc 38 Estimated GFR 50 L Glucose 164 H POC Capillary Glucose 155 H 163 H Calcium 8.8 Total Bilirubin 0.3 AST 28 ALT 18 Alkaline Phosphatase 65 Total Protein 7.0 Albumin 3.8 03/20/24 03/20/24 03/20/24 19:40 16:46 11:28 WBC RBC Hgb Hct MCV MCH MCHC RDW Plt Count MPV Immature Gran % (Auto)
[2024-03-21 11:37] LABS: Glucose Point of Care 157 mg/dl (65-105)
[2024-03-21 13:56] VITALS: BP 124/73; PULSE 67; RESP 18; TEMP 36.4; O2SAT 100
[2024-03-21 15:11] LABS: SARS-CoV-2 RNA PCR Negative (Negative)
== END 2024-03-21 15:48 | DRG 463 ==
LOC: ANHED 22:37 → ANH3MEDSUR 23:19
PROVIDERS: Student in an Organized Health Care Education/Training Program; Admitting Provider Internal Medicine; Emergency Provider Student in an Organized Health Care Education/Training Program; Visit Provider Nurse Practitioner Acute Care
DX: N39.0 Urinary tract infection, site not specified (principal); B96.1 Klebsiella pneumoniae [K. pneumoniae] as the cause of diseases classified elsewhere; I12.9 Hypertensive chronic kidney disease with stage 1 through stage 4 chronic kidney disease, or unspecified chronic kidney disease; E11.22 Type 2 diabetes mellitus with diabetic chronic kidney disease; N18.30 Chronic kidney disease, stage 3 unspecified; E78.5 Hyperlipidemia, unspecified; K21.9 Gastro-esophageal reflux disease without esophagitis; H40.9 Unspecified glaucoma
CPT/HCPCS: 36415; 70450; 73020; 74177; 80053; 81001; 82948; 83605; 83690; 85025; 87040; 87086; 87186; 87635; 87637; 96361; 96374; 96375; 99285; A9270; J0696; J1815; J2405; J2470; J7120; Q9967